=== PATIENT | female | born 1935 | race Caucasian/White ===

== ENCOUNTER 2020-02-09 13:35 | Observation (INO) | payer MEDICARE ==
[~2020-02-09] VITALS: Ht 167.6 cm; Wt 107.3 kg
[~2020-02-09 13:35] MED LIST: CALGLU500; DIAZ2 PO; FISH1000; FURO40; HYDMOR2 PO; INSN100I; INSUL100I; LISI10; LISI20; METF500; RXHYDMOR2 PO; RXLORA1 PO; SPIR25
[2020-02-09] MEDS ORDERED: Klor-Con 1010 MEQ PO (17:26)
[2020-02-09] MEDS ORDERED: AMOX-CLAV 500-1 EAC1 PO (17:27)
[2020-02-09] MEDS ORDERED: ESCI10 PO (17:29)
[2020-02-09] MEDS ORDERED: NEURONTIN300 MG PO (17:29)
[2020-02-09] MEDS ORDERED: Bumetanide2 MG PO (17:30)
[2020-02-09] MEDS ORDERED: Simvastatin10 MG PO (17:31)
[2020-02-09] MEDS ORDERED: LEVSOD75 PO (17:31)
[2020-02-09] MEDS ORDERED: ALLOPURINOL100 M1 PO (17:32)
[2020-02-09] MEDS ORDERED: METO5 PO (17:33)
[2020-02-09] MEDS ORDERED: METO50ER PO (17:33)
[2020-02-09 17:35] LABS: Hematocrit 40.9 % (33.0-51.0); Hemoglobin 13.2 g/dL (11.5-16.0); Mean Corpuscular HGB 31.7 pg (26.0-34.0); Mean Corpuscular HGB Conc 32.3 g/dL (31.5-36.5); Mean Corpuscular Volume 98 fL (80-100); Mean Platelet Volume 12.7 fL (9.1-12.4); Platelet Count 122 K/mm3 (150-400); RDW Coefficient Variation 15.1 % (11.7-14.2); RDW Standard Deviation 53.6 fL (35.1-46.3); Red Blood Cell Count 4.17 M/mm3 (3.80-5.20); White Blood Cell Count 18.64 K/mm3 (4.00-11.30)
[2020-02-09 17:52] LABS: Magnesium, Blood 3.3 mg/dL (1.6-2.4)
[2020-02-09 17:53] LABS: BAND PERCENT MAN 1 % (0-8); BASOPHILS PERCENT MAN 0 % (0-2); EOSINOPHILS ABSOLUTE MAN 0.55 K/mm3 (0.00-0.68); EOSINOPHILS PERCENT MAN 3 % (0-6); LYMPHOCYTES ABSOLUTE MAN 7.64 K/mm3 (0.84-5.20); LYMPHOCYTES PERCENT MAN 41 % (21-46); MONOCYTES ABSOLUTE MAN 0.55 K/mm3 (0.16-1.47); MONOCYTES PERCENT MAN 3 % (4-13); NEUTROPHILS ABSOLUTE MAN 9.87 K/mm3 (1.96-9.15); SEG NEUTROPHILS PERCENT MAN 52 % (41-73); TOTAL CELLS COUNTED 100
[2020-02-09] MEDS ORDERED: GABA300 PO (18:04)
[2020-02-09] MEDS ORDERED: CENTRUM SILVER1 EAC2 PO (18:08)
[2020-02-09] MEDS ORDERED: Glucosamine-Ch1 EACH PO (18:08)
[2020-02-09 18:31] LABS: Albumin, Blood 3.7 g/dL (3.4-5.0); Albumin/Globulin Ratio 0.9 (0.8-1.8); Bilirubin, Total 0.4 mg/dL (0.1-1.0); Bun/Creatinine Ratio 65.7 (12.0-20.0); Calcium, Blood 9.8 mg/dL (8.5-10.1); Creatinine, Blood 2.83 mg/dL (0.40-1.00); Globulin, Blood 4.1 g/dL (2.2-4.0); Phosphorus, Blood 6.1 mg/dL (2.5-4.9); Potassium, Blood 3.4 mmol/L (3.5-5.5); Total Protein, Blood 7.8 g/dL (6.4-8.2)
[2020-02-09] MEDS ORDERED: HUMALOG100 UNIT/1 SC (20:19)
[2020-02-09] MEDS ORDERED: LANTUS SC (20:20)
--- NOTE | 2020-02-09 22:47 | NUR ---
multiple calls from tele ekg monitor indicating HR has consistantly been in mid 40 's early part of evening. Just a few minutes ago, received another c all indicating patient had begun having brief periods in the mid to high 30's. Patient wakes easily and is alert and oriented times 4. Will place call to MD. Patient currently taking metoprolol 50mg q. day.
[2020-02-10 05:07] LABS: Hematocrit 38.7 % (33.0-51.0); Hemoglobin 12.5 g/dL (11.5-16.0); Mean Corpuscular HGB 31.2 pg (26.0-34.0); Mean Corpuscular HGB Conc 32.3 g/dL (31.5-36.5); Mean Corpuscular Volume 97 fL (80-100); Mean Platelet Volume 12.3 fL (9.1-12.4); Platelet Count 121 K/mm3 (150-400); RDW Standard Deviation 53.6 fL (35.1-46.3); Red Blood Cell Count 4.01 M/mm3 (3.80-5.20); White Blood Cell Count 16.74 K/mm3 (4.00-11.30)
[2020-02-10 05:49] LABS: C-REACTIVE PROTEIN, EXT RANGE 1.47 mg/dL (0.000-0.300); Magnesium, Blood 3.3 mg/dL (1.6-2.4); Thyroid Stimulating Hormone 2.47 uIU/mL (0.360-4.800)
[2020-02-10 05:55] LABS: BASOPHILS PERCENT MAN 0 % (0-2); EOSINOPHILS ABSOLUTE MAN 0.33 K/mm3 (0.00-0.68); EOSINOPHILS PERCENT MAN 2 % (0-6); LYMPHOCYTES ABSOLUTE MAN 8.53 K/mm3 (0.84-5.20); LYMPHOCYTES PERCENT MAN 51 % (21-46); MONOCYTES ABSOLUTE MAN 1.17 K/mm3 (0.16-1.47); MONOCYTES PERCENT MAN 7 % (4-13); NEUTROPHILS ABSOLUTE MAN 6.69 K/mm3 (1.96-9.15); SEG NEUTROPHILS PERCENT MAN 40 % (41-73); TOTAL CELLS COUNTED 100
[2020-02-10 05:56] LABS: Albumin, Blood 3.3 g/dL (3.4-5.0); Albumin/Globulin Ratio 0.9 (0.8-1.8); Bilirubin, Total 0.5 mg/dL (0.1-1.0); Bun/Creatinine Ratio 62.3 (12.0-20.0); Calcium, Blood 9.5 mg/dL (8.5-10.1); Creatinine, Blood 2.84 mg/dL (0.40-1.00); Globulin, Blood 3.7 g/dL (2.2-4.0); Potassium, Blood 3.2 mmol/L (3.5-5.5)
--- NOTE | 2020-02-10 07:13 | NUR ---
PER DR CARABALLO, PROCEDURE WILL BE ON HOLD DUE TO THE INCREASE IN GFR. DR CARABALLO WILL CALL DR WALTON AND UPDATE ABOUT PROCEDURE CANCELLATION. PT BACK TO MEDICAL FLOOR ROOM BY RN.
--- NOTE | 2020-02-10 07:57 | NUR ---
SOIL SCIENCE TEACHER SUMMARY Slept well. Minimal c/o pain overnight after repositioning on side and giving patient 2 tylenol for right and left flank discomfort which she has had complaints of for the last several days. Awaiting information from Dr. Carcamo as GFR has increased to 17 this morning.
--- NOTE | 2020-02-10 11:34 | NUR ---
FLEXERIL & INSULIN DISCUSSED WITH DR. LUCAS RE PT REQUESTING FLEXERIL FOR MUSCLE SPASMS. ALSO DISCUSSED NO INSULIN ORDERED FOR BLOOD SUGAR COVERAGE. DR. LUCAS WILL BE PUTTING IN ORDERS FOR INSULIN. RECEIVED VERBAL ORDER FOR FLEXERIL. EMAR UPDATED.
--- NOTE | 2020-02-10 16:37 | NUR ---
Shift Summary A/Ox3, pleasant and cooperative with care. Calls for needs appropriately, dtr at bedside for most of day. Up to chair x 1 assist. Medicated for back spasms x 2 per EMAR with good results. Denies nausea, vomiting, diarrhea. Appetite is good. Wound care was completed last night per report received, dressing remains c/d/i. Tele: SB 50's. Continuous biox currently on. Patient had an uneventful day with no acute concerns. Will continue to monitor.
[2020-02-11 05:09] LABS: BASOPHILS ABSOLUTE AUTO 0.06 K/mm3 (0.00-0.23); BASOPHILS PERCENT AUTO 0 % (0-2); EOSINOPHILS ABSOLUTE AUTO 0.35 K/mm3 (0.00-0.68); EOSINOPHILS PERCENT AUTO 3 % (0-6); Hematocrit 39.4 % (33.0-51.0); Hemoglobin 12.7 g/dL (11.5-16.0); Mean Corpuscular HGB 31.2 pg (26.0-34.0); Mean Corpuscular HGB Conc 32.2 g/dL (31.5-36.5); Mean Corpuscular Volume 97 fL (80-100); Mean Platelet Volume 12.9 fL (9.1-12.4); Platelet Count 127 K/mm3 (150-400); RDW Standard Deviation 53.2 fL (35.1-46.3); Red Blood Cell Count 4.07 M/mm3 (3.80-5.20); White Blood Cell Count 13.82 K/mm3 (4.00-11.30)
[2020-02-11 05:19] LABS: IMMATURE GRAN ABSOLUTE AUTO 0.06 K/mm3 (0.00-0.10); IMMATURE GRAN PERCENT AUTO 0 % (0-1); LYMPHOCYTES ABSOLUTE AUTO 7.77 K/mm3 (0.84-5.20); LYMPHOCYTES PERCENT AUTO 56 % (21-46); MONOCYTES PERCENT AUTO 5 % (4-13); NEUTROPHILS ABSOLUTE AUTO 4.88 K/mm3 (1.96-9.15); NEUTROPHILS PERCENT AUTO 35 % (41-73)
[2020-02-11 05:44] LABS: Albumin, Blood 3.4 g/dL (3.4-5.0); Anion Gap 7 mmol/L (6-16); CO2, Blood 30 mmol/L (21-32); Calcium, Blood 9.6 mg/dL (8.5-10.1); Chloride, Blood 103 mmol/L (98-108); Creatinine, Blood 2.77 mg/dL (0.40-1.00); Glomerular Filtration Rate 17 (60-); Glucose, Blood 243 mg/dL (70-99); Magnesium, Blood 3.3 mg/dL (1.6-2.4); Phosphorus, Blood 4.9 mg/dL (2.5-4.9); Potassium, Blood 3.7 mmol/L (3.5-5.5); Sodium, Blood 140 mmol/L (136-145)
[2020-02-11 06:04] LABS: Blood Urea Nitrogen 164 mg/dL (8-24); Bun/Creatinine Ratio 59.2 (12.0-20.0)
--- NOTE | 2020-02-11 06:32 | NUR ---
ADDENDUM TO SHIFT SUMMARY. Gordy IS CONCERNED ABOUT NOT RECEIVING PO ANTIBIOTIC (SHE WAS TAKING AMOXICILLAN PRIOR TO THIS HOSPITALZATION. (PRESCRIBED BY HER FOOT DOCTOR IN [place])
--- NOTE | 2020-02-11 11:12 | NUR ---
OXIMETRY PER DR. LUCAS, OXIMETRY TO BE D/C. ORDER UPDATED.
--- NOTE | 2020-02-11 17:42 | NUR ---
Shift Summary Reported an episode of slight dizziness when ambulating to the bathroom. Continues to be 1P c FWW and gait. Wound on L medial foot cleansed and redressed, scant serous drainage noted. Amoxicillin continued per patient request as she states she is taking this for her wound which was prescribed by her signs cleaner in [place]. Continues to c/o back spasms, medicated with a combination of Flexeril, Tylenol, and heat therapy with good relief. Calls appropriately for needs. Will continue to monitor.
[2020-02-12 04:54] LABS: Hematocrit 39.8 % (33.0-51.0); Mean Corpuscular HGB 31.6 pg (26.0-34.0); Mean Corpuscular HGB Conc 32.7 g/dL (31.5-36.5); Mean Corpuscular Volume 97 fL (80-100); Mean Platelet Volume 12.7 fL (9.1-12.4); Platelet Count 121 K/mm3 (150-400); RDW Standard Deviation 53.1 fL (35.1-46.3); Red Blood Cell Count 4.12 M/mm3 (3.80-5.20); White Blood Cell Count 17.02 K/mm3 (4.00-11.30)
[2020-02-12 05:26] LABS: Albumin, Blood 3.4 g/dL (3.4-5.0); Anion Gap 8 mmol/L (6-16); CO2, Blood 28 mmol/L (21-32); Calcium, Blood 9.5 mg/dL (8.5-10.1); Chloride, Blood 102 mmol/L (98-108); Creatinine, Blood 2.95 mg/dL (0.40-1.00); Glomerular Filtration Rate 16 (60-); Glucose, Blood 260 mg/dL (70-99); Magnesium, Blood 3.3 mg/dL (1.6-2.4); Phosphorus, Blood 4.5 mg/dL (2.5-4.9); Potassium, Blood 3.8 mmol/L (3.5-5.5); Sodium, Blood 138 mmol/L (136-145)
[2020-02-12 05:41] LABS: Blood Urea Nitrogen 160 mg/dL (8-24); Bun/Creatinine Ratio 54.2 (12.0-20.0)
--- NOTE | 2020-02-12 06:40 | NUR ---
SHIFT SUMMARY PATIENT ALERT AND ORIENTED OVERNIGHT. MEDICATED PER EMAR FOR MUSCLE SPASMS. WAS ABLE TO SLEEP WELL OVERNIGHT WITH MINIMAL NEEDS. IV PATENT AND FLUSHED. BED IN LOWEST POSITION WITH WHEELS LOCKED. CALL LIGHT WITHIN REACH. REPORT GIVEN TO ONCOMING RN.
--- NOTE | 2020-02-12 16:40 | NUR ---
Transfer of Care Report given to LATISHA Perdomo. Dressing on L medial foot changed today, scant serosanguineous drainage noted. Patient c/o pain in L lateral foot which has made it difficult for her to fall asleep, however, patient can not feel touch in this area. States spasms have been well managed with heating pad. No other acute changes this shift.
--- NOTE | 2020-02-12 16:47 | NUR ---
ASSUMED CARE OF PT AT 1630. RECEIVED REPORT FROM GOSIA GOOD. PT DENIES ANY NEEDS AT THIS TIME. WILL CONTINUE TO MONITOR PT.
[2020-02-13 04:59] LABS: Hematocrit 39.5 % (33.0-51.0); Hemoglobin 12.8 g/dL (11.5-16.0); Mean Corpuscular HGB 31.2 pg (26.0-34.0); Mean Corpuscular HGB Conc 32.4 g/dL (31.5-36.5); Mean Corpuscular Volume 96 fL (80-100); Mean Platelet Volume 13.1 fL (9.1-12.4); Platelet Count 107 K/mm3 (150-400); RDW Coefficient Variation 14.9 % (11.7-14.2); RDW Standard Deviation 52.1 fL (35.1-46.3); White Blood Cell Count 14.48 K/mm3 (4.00-11.30)
[2020-02-13 05:27] LABS: Alanine Aminotransfer (ALT/SGP 22 U/L (12-78); Albumin, Blood 3.5 g/dL (3.4-5.0); Alk Phos 81 U/L (50-136); Anion Gap 8 mmol/L (6-16); Aspartate Aminotrans (AST/SGOT 20 U/L (12-37); Bilirubin, Direct 0.1 mg/dL (0.0-0.3); Bilirubin, Indirect 0.3 mg/dL (0.1-0.7); Bilirubin, Total 0.4 mg/dL (0.1-1.0); CO2, Blood 27 mmol/L (21-32); Calcium, Blood 9.7 mg/dL (8.5-10.1); Chloride, Blood 102 mmol/L (98-108); Creatinine, Blood 3.19 mg/dL (0.40-1.00); Globulin, Blood 3.5 g/dL (2.2-4.0); Glomerular Filtration Rate 15 (60-); Glucose, Blood 276 mg/dL (70-99); Magnesium, Blood 3.2 mg/dL (1.6-2.4); Phosphorus, Blood 4.4 mg/dL (2.5-4.9); Sodium, Blood 137 mmol/L (136-145)
[2020-02-13 05:46] LABS: Blood Urea Nitrogen 158 mg/dL (8-24); Bun/Creatinine Ratio 49.5 (12.0-20.0)
[2020-02-13 06:21] LABS: BASOPHILS ABSOLUTE MAN 0.14 K/mm3 (0.00-0.23); BASOPHILS PERCENT MAN 1 % (0-2); EOSINOPHILS ABSOLUTE MAN 0.43 K/mm3 (0.00-0.68); EOSINOPHILS PERCENT MAN 3 % (0-6); LYMPHOCYTES ABSOLUTE MAN 8.97 K/mm3 (0.84-5.20); LYMPHOCYTES PERCENT MAN 62 % (21-46); MONOCYTES ABSOLUTE MAN 1.01 K/mm3 (0.16-1.47); MONOCYTES PERCENT MAN 7 % (4-13); SEG NEUTROPHILS PERCENT MAN 27 % (41-73); TOTAL CELLS COUNTED 100
--- NOTE | 2020-02-13 07:35 | NUR ---
SHIFT SUMMARY PATIENT ALERT AND ORIENTED. MEDICATED PER EMAR FOR BACK PAIN AND PATIENT WAS ABLE TO SLEEP WELL ALL NIGHT. IV PATENT AND FLUSHED. BED IN LOWEST POSITION WITH WHEELS LOCKED. CALL LIGHT WTIHIN REACH. REPORT GIVEN TO ONCOMING RN.
--- NOTE | 2020-02-13 15:31 | NUR ---
PT IS A&O, PT HAS 22G IV PLACED IN R HAND THIS SHIFT, PT IS ON RA. PT IS INDEPENDENT IN ROOM TO COMODE. PT HAS DRESSING ON LEFT ANTERIOR FOOT. PT HAS DENIED ANY PAIN THIS SHIFT. PT TOLORATED FOOD WELL THIS SHIFT. PT WILL HAVE PERMA CATH PLACED TOMORROW WILL COUNTINUE TO MONITOR AND REPORT NOC RN, CALL LIGHT WITH IN REACH.
[2020-02-14 05:31] LABS: Hematocrit 38.8 % (33.0-51.0); Hemoglobin 12.6 g/dL (11.5-16.0); Mean Corpuscular HGB 31.3 pg (26.0-34.0); Mean Corpuscular HGB Conc 32.5 g/dL (31.5-36.5); Mean Corpuscular Volume 97 fL (80-100); Platelet Count 105 K/mm3 (150-400); RDW Coefficient Variation 14.9 % (11.7-14.2); RDW Standard Deviation 53.3 fL (35.1-46.3); Red Blood Cell Count 4.02 M/mm3 (3.80-5.20); White Blood Cell Count 15.99 K/mm3 (4.00-11.30)
[2020-02-14 05:48] LABS: Mean Platelet Volume 13.3 fL (9.1-12.4)
[2020-02-14 06:21] LABS: Albumin, Blood 3.4 g/dL (3.4-5.0); Albumin/Globulin Ratio 0.9 (0.8-1.8); Bilirubin, Total 0.4 mg/dL (0.1-1.0); Bun/Creatinine Ratio 52.3 (12.0-20.0); Calcium, Blood 9.6 mg/dL (8.5-10.1); Creatinine, Blood 2.81 mg/dL (0.40-1.00); Globulin, Blood 3.8 g/dL (2.2-4.0); Magnesium, Blood 3.2 mg/dL (1.6-2.4); Phosphorus, Blood 3.9 mg/dL (2.5-4.9); Potassium, Blood 4.1 mmol/L (3.5-5.5); Total Protein, Blood 7.2 g/dL (6.4-8.2)
--- NOTE | 2020-02-14 06:36 | NUR ---
SHIFT SUMMARY PATIENT ALERT AND ORIENTED. HAD NO COMPLAINTS OF PAIN OVERNIGHT. PATIENT SLEPT WELL AND HAD MINIMAL NEEDS. IV PATENT AND FLUSHED. BED IN LOWEST POSITION WITH WHEELS LOCKED. CALL LIGHT WITHIN REACH. REPORT GIVEN TO ONCOMING RN.
[2020-02-14 07:15] LABS: BASOPHILS PERCENT MAN 0 % (0-2); EOSINOPHILS PERCENT MAN 0 % (0-6); LYMPHOCYTES ABSOLUTE MAN 8.31 K/mm3 (0.84-5.20); LYMPHOCYTES PERCENT MAN 52 % (21-46); MONOCYTES ABSOLUTE MAN 1.27 K/mm3 (0.16-1.47); MONOCYTES PERCENT MAN 8 % (4-13); NEUTROPHILS ABSOLUTE MAN 6.39 K/mm3 (1.96-9.15); SEG NEUTROPHILS PERCENT MAN 40 % (41-73); TOTAL CELLS COUNTED 100
[2020-02-14] MEDS ORDERED: BASAGLAR K100 UNIT/1 SC (11:39)
[2020-02-14] MEDS ORDERED: LIDOCARE1 EACH TOP (11:42)
--- NOTE | 2020-02-14 14:23 | NUR ---
DISCHARGE PT DISCHARGED TO HOME. THIS RN EXPLAINED DISCHARGE INSTRUCTIONS AND MEDICATIONS TO PT AND SHE REPORTS SHE UNDERSTANDS. IV REMOVED WITHOUT DIFFICULTY. WOUND TO LEFT MEDIAL FOOT CLEANED AND NEW DRESSING PLACED. PICTURE TAKEN. PT TRANSFERRED TO PRIVATE VEHICLE VIA WHEELCHAIR. BELONGINGS WITH PT AND PT'S DAUGHTER.
== END 2020-02-14 13:29 | disposition home or self-care (01) ==
LOC: ER 13:35 → MEDS 13:36 → ER 17:45 → MEDS 17:45
PROVIDERS: Emergency Medicine; Internal Medicine Nephrology; ADMIT Internal Medicine
DX: I12.0 Hypertensive chronic kidney disease with stage 5 chronic kidney disease or end stage renal disease (principal); E11.22 Type 2 diabetes mellitus with diabetic chronic kidney disease; N18.6 End stage renal disease; N17.9 Acute kidney failure, unspecified; E87.70 Fluid overload, unspecified; E03.9 Hypothyroidism, unspecified; E87.6 Hypokalemia; E87.1 Hypo-osmolality and hyponatremia; E83.41 Hypermagnesemia; M10.9 Gout, unspecified; M54.9 Dorsalgia, unspecified; N25.81 Secondary hyperparathyroidism of renal origin; Z79.4 Long term (current) use of insulin; Z88.5 Allergy status to narcotic agent; Z88.0 Allergy status to penicillin
CPT/HCPCS: 36415; 71046; 76770; 80053; 80069; 82248; 82947; 83735; 83880; 84100; 84443; 85025; 85027; 85651; 86140; 96372; 97110; 97110-CQ; 97116; 97116-CQ; 97162; 97530; 99284; A9270; A9270-GY; G0378; J1644; J2250; J3010; J3480; J7040

== ENCOUNTER 2020-03-01 10:45 | Day surgery (SDC) | payer MEDICARE ==
[~2020-03-01] VITALS: Ht 170.2 cm; Wt 109.8 kg
[~2020-03-01 10:45] MED LIST changes: +ALLOPURINOL100 M1 PO; +AMOX-CLAV 500-1 EAC1 PO; +BASAGLAR K100 UNIT/1 SC; +Bumetanide2 MG PO; +CENTRUM SILVER1 EAC2 PO; +ESCI10 PO; +GABA300 PO; +Glucosamine-Ch1 EACH PO; +HUMALOG100 UNIT/1 SC; +Klor-Con 1010 MEQ PO; +LANTUS SC; +LEVSOD75 PO; +LIDOCARE1 EACH TOP; +METO5 PO; +METO50ER PO; +NEURONTIN300 MG PO; +Simvastatin10 MG PO
[2020-03-01] MEDS ORDERED: Aspir 8181 MG PO (11:15)
[2020-03-01] MEDS ORDERED: FISH OIL-VIT D1 EACH PO (11:16)
--- NOTE | 2020-03-01 13:08 | NUR ---
1300 PATIENT RETURNED FROM THE CATHLAB WITH PERMA CATH IN PLACE, CLAMPED AND DRESSING CDI. PATIENT PLACED ON THE MONITOR, CALL LIGHT IN REACH. HOB UP AND DRINKING COFFEE. DAUGHTER AT THE BEDSIDE. NO PAIN NOTED FROM THE PATIENT.
--- NOTE | 2020-03-01 14:02 | NUR ---
1330 REVIEWED ALL DISCHARGE INSTRUCTIONS WITH PATIENT AND DAUGHTER. ALL QUESTIONS ANSWERED. PATIENT SITTING UP IN THE BED, MONITOR IN PLACE AND CALL LIGHT IN REACH. EATING LUNCH WITH DAUGHTER AT THE BEDSIDE. DRESSING TO THE RIGHT SHOULDER CDI. NO PAIN NOTED FROM THE PATIENT. PATIENT ASSISTED WITH DRESSING BY DAUGHTER AND THEN ASSISTED TO THE WHEELCHAIR. 1400 PIV TO THE RIGHT AC REMOVED, CATHETER TIP INTACT AND PRESSURE DRESSING APPLIED. DISCHARGE INSTRUCTIONS AND ALL BELONGINGS RETAINED BY THE PATIENT.
== END 2020-03-01 13:45 | disposition home or self-care (01) ==
LOC: MHTC 10:45
DX: I12.0 Hypertensive chronic kidney disease with stage 5 chronic kidney disease or end stage renal disease (principal); E11.22 Type 2 diabetes mellitus with diabetic chronic kidney disease; N18.6 End stage renal disease; E78.00 Pure hypercholesterolemia, unspecified; Z88.5 Allergy status to narcotic agent; Z88.0 Allergy status to penicillin; Z79.899 Other long term (current) drug therapy; Z79.4 Long term (current) use of insulin; Z79.82 Long term (current) use of aspirin
CPT/HCPCS: 36558; 76937; 99152; 99153; C1750; C1769; C1894; J1644; J2250; J3010; J7030; J7040

== ENCOUNTER 2020-03-30 10:04 | Day surgery (SDC) | payer MEDICARE ==
[~2020-03-30] VITALS: Ht 167.6 cm; Wt 110.0 kg
[~2020-03-30 10:04] MED LIST changes: +Aspir 8181 MG PO; +BIOTIN1 MG; +BUME2; +CYCL10 PO; +FISH OIL-VIT D1 EACH PO
--- NOTE | 2020-03-30 15:00 | NUR ---
PT TO RECOVERY ROOM POST PROCEDURE. PT DOSING, BUT ROUSES TO NAME; ORIENTED AND ANSWERS QUESTIONS APPROPRIATELY. PT DENIES PAIN POST PROCEDURE. MONITOR SB/SR 50-60'S, B/P 138/63, AFEBRILE, SPO2 97% 2L NC . ABD PD DRAIN SITE NO SWELLING/HEMATOMA, TELFA, GAUZE AND TEGADERM DRSG INTACT. R CHEST OLD PERMCATH SITE CLOTH DOT DRSG INTACT. PT'S DAUGHTER AT BEDSIDE, ATTENTIVE.
--- NOTE | 2020-03-30 15:30 | NUR ---
PT UPDATED VIA BINDERY LIBRARY TECHNICAL ASSISTANT TELEPHONE ON WAIT TIME. AMBULATES TO RESTROOM WITH STEADY GAIT. PROVIDED WITH WARM BLANKET
--- NOTE | 2020-03-30 16:45 | NUR ---
PT AMB TO BATHROOM WITH WALKER, GAIT STEADY; SITE UNCHANGED WITH ACTIVITY. PT REPORTS SOB WITH ACITVITY-WNL FOR PT, DESATURATED TO 87, RETURNED TO MID 90'S WITH REST.
--- NOTE | 2020-03-30 17:00 | NUR ---
PT GOT DRESSED WITH MIN ASSISTANCE, SITE UNCHANGED; IV REMOVED-CANNULA INTACT.
--- NOTE | 2020-03-30 17:13 | NUR ---
PT AND DAUGHTER RECEIVED DISCHARGE INSTRUCTIONS, MED LIST AND AFTER CARE INSTRUCTIONS; VERBALIZED GOOD UNDERSTANDING. PT LEFT FACILITY VIA W/C, CONDITION STABLE.
== END 2020-03-30 17:13 | disposition home or self-care (01) ==
LOC: MHTC 10:04
DX: Z45.2 Encounter for adjustment and management of vascular access device (principal); I12.0 Hypertensive chronic kidney disease with stage 5 chronic kidney disease or end stage renal disease; E11.22 Type 2 diabetes mellitus with diabetic chronic kidney disease; N18.6 End stage renal disease; E78.00 Pure hypercholesterolemia, unspecified; Z88.5 Allergy status to narcotic agent; Z88.0 Allergy status to penicillin; Z79.899 Other long term (current) drug therapy; Z79.82 Long term (current) use of aspirin; Z79.4 Long term (current) use of insulin; Z99.2 Dependence on renal dialysis
CPT/HCPCS: 49418; 76937; 82947; 99152; 99153; C1750; C1769; C1887; C1894; J1644; J2250; J3010; J7030; J7040

== ENCOUNTER 2020-07-20 16:19 | Emergency (ER) | payer MEDICARE ==
[~2020-07-20] VITALS: Ht 167.6 cm; Wt 108.0 kg
[~2020-07-20 16:19] MED LIST changes: -BUME2; +BUME2 PO
[2020-07-20 17:54] LABS: BASOPHILS ABSOLUTE AUTO 0.03 K/mm3 (0.00-0.23); BASOPHILS PERCENT AUTO 0 % (0-2); EOSINOPHILS ABSOLUTE AUTO 0.01 K/mm3 (0.00-0.68); EOSINOPHILS PERCENT AUTO 0 % (0-6); Hematocrit 39.5 % (33.0-51.0); Hemoglobin 12.6 g/dL (11.5-16.0); IMMATURE GRAN PERCENT AUTO 1 % (0-1); LYMPHOCYTES ABSOLUTE AUTO 4.05 K/mm3 (0.84-5.20); LYMPHOCYTES PERCENT AUTO 33 % (21-46); MONOCYTES ABSOLUTE AUTO 0.25 K/mm3 (0.16-1.47); MONOCYTES PERCENT AUTO 2 % (4-13); Mean Corpuscular HGB 30.4 pg (26.0-34.0); Mean Corpuscular HGB Conc 31.9 g/dL (31.5-36.5); Mean Corpuscular Volume 95 fL (80-100); NEUTROPHILS ABSOLUTE AUTO 7.69 K/mm3 (1.96-9.15); NEUTROPHILS PERCENT AUTO 63 % (41-73); Platelet Count 144 K/mm3 (150-400); RDW Coefficient Variation 16.6 % (11.7-14.2); RDW Standard Deviation 58.4 fL (35.1-46.3); Red Blood Cell Count 4.14 M/mm3 (3.80-5.20); White Blood Cell Count 12.13 K/mm3 (4.00-11.30)
[2020-07-20 18:39] LABS: Albumin, Blood 3.7 g/dL (3.4-5.0); Bilirubin, Total 0.4 mg/dL (0.1-1.0); Bun/Creatinine Ratio 45.2 (12.0-20.0); Calcium, Blood 9.7 mg/dL (8.5-10.1); Creatinine, Blood 1.97 mg/dL (0.40-1.00); Globulin, Blood 3.6 g/dL (2.2-4.0); Potassium, Blood 4.8 mmol/L (3.5-5.5); Total Protein, Blood 7.3 g/dL (6.4-8.2)
[2020-07-20] MEDS ORDERED: SENNA LAXATIVE8.6 MG PO (21:48)
[2020-07-20] MEDS ORDERED: Zithromax250 MG PO (21:48)
== END 2020-07-20 22:00 | disposition home or self-care (01) ==
LOC: ER 16:19
PROVIDERS: Physician Assistant
DX: J18.9 Pneumonia, unspecified organism (principal); K59.00 Constipation, unspecified; M54.5 Low back pain; I12.9 Hypertensive chronic kidney disease with stage 1 through stage 4 chronic kidney disease, or unspecified chronic kidney disease; E11.22 Type 2 diabetes mellitus with diabetic chronic kidney disease; N18.9 Chronic kidney disease, unspecified; E03.9 Hypothyroidism, unspecified; Z88.5 Allergy status to narcotic agent; Z88.0 Allergy status to penicillin; Z79.4 Long term (current) use of insulin; Z79.899 Other long term (current) drug therapy; Z79.82 Long term (current) use of aspirin
CPT/HCPCS: 36415; 80053; 85025; 99284-25; A9270

== ENCOUNTER → 2020-07-21 | Outpatient (CLI) | payer MEDICARE ==
[~2020-07-21] MED LIST changes: +INSULANI; +LEVFLO500; +LEVOFLOXACIN500 MG PO; +SENNA LAXATIVE8.6 MG PO; +SULTRIDS PO; +VISBIOME 112.51 EACH PO; +Zithromax250 MG PO
[2020-07-21 13:20] LABS: Automated BF WBC Count 0.028 K/mm3 (0-999); Body Fluid WBC Count 28 /mm3 (0-999)
[2020-07-21 13:41] LABS: RBC Count, Body Fluid 345 /mm3 (0-0)
[2020-07-21 13:51] LABS: Appearance, Body Fluid Clear (Clear); Color, Body Fluid No color (None-Yellow)
[2020-07-21 14:05] LABS: Total Cell Count, Body Fluid 100
== END | disposition home or self-care (01) ==
LOC: LAB 12:30 → LAB SHORT 12:30
PROVIDERS: Internal Medicine Nephrology
DX: R11.2 Nausea with vomiting, unspecified (principal); R10.9 Unspecified abdominal pain
CPT/HCPCS: 87070; 87075; 87205; 89051

== ENCOUNTER 2020-09-07 11:28 | Inpatient (IN) | payer MEDICARE ==
[~2020-09-07] VITALS: Ht 167.6 cm; Wt 115.0 kg
[~2020-09-07 11:28] MED LIST changes: -INSULANI; -LEVFLO500; -LEVOFLOXACIN500 MG PO; -SULTRIDS PO; -VISBIOME 112.51 EACH PO
[2020-09-07 12:10] LABS: Hematocrit 34.6 % (33.0-51.0); Hemoglobin 11.3 g/dL (11.5-16.0); Mean Corpuscular HGB 31.9 pg (26.0-34.0); Mean Corpuscular HGB Conc 32.7 g/dL (31.5-36.5); Mean Corpuscular Volume 98 fL (80-100); Mean Platelet Volume 12.2 fL (9.1-12.4); Platelet Count 131 K/mm3 (150-400); RDW Coefficient Variation 15.2 % (11.7-14.2); RDW Standard Deviation 55.6 fL (35.1-46.3); Red Blood Cell Count 3.54 M/mm3 (3.80-5.20)
[2020-09-07 12:38] LABS: Albumin, Blood 2.4 g/dL (3.4-5.0); Albumin/Globulin Ratio 0.7 (0.8-1.8); Bilirubin, Total 0.6 mg/dL (0.1-1.0); Bun/Creatinine Ratio 25.7 (12.0-20.0); Calcium, Blood 8.5 mg/dL (8.5-10.1); Creatinine, Blood 2.22 mg/dL (0.40-1.00); Globulin, Blood 3.3 g/dL (2.2-4.0); Potassium, Blood 3.6 mmol/L (3.5-5.5); Total Protein, Blood 5.7 g/dL (6.4-8.2)
[2020-09-07 12:59] LABS: BASOPHILS ABSOLUTE MAN 0.11 K/mm3 (0.00-0.23); BASOPHILS PERCENT MAN 1 % (0-2); EOSINOPHILS ABSOLUTE MAN 0.11 K/mm3 (0.00-0.68); EOSINOPHILS PERCENT MAN 1 % (0-6); LYMPHOCYTES % ATYPICAL MANUAL 2 % (0-0); LYMPHOCYTES ABSOLUTE MAN 3.68 K/mm3 (0.84-5.20); LYMPHOCYTES PERCENT MAN 30 % (21-46); MONOCYTES ABSOLUTE MAN 0.57 K/mm3 (0.16-1.47); MONOCYTES PERCENT MAN 5 % (4-13); NEUTROPHILS ABSOLUTE MAN 7.01 K/mm3 (1.96-9.15); SEG NEUTROPHILS PERCENT MAN 61 % (41-73); TOTAL CELLS COUNTED 100
--- NOTE | 2020-09-07 17:00 | NUR ---
ASSUMED CARE: PT TRANSFERRED FROM ED TO ROOM 229. ABD PAD AND PACKING TO LEFT LOWER QUADRANT AFTER I AND D. DENIES NEEDS OR CONCERNS.
--- NOTE | 2020-09-07 18:28 | NUR ---
DIALYSIS NURSE AT BEDSIDE FOR PD AT THIS TIME.
--- NOTE | 2020-09-07 19:23 | NUR ---
PERITONEAL EFFLUENT SAMPLE ORDERED BY DR CARABALLO FOR PATIENT ADMITTED TO SURGICAL FLOOR VIA ER WITH C/O OPEN WOUND ON ABDOMEN NEAR PD CATHETER EXIT SITE. PT FOUND TO BE " DRY " SO TO FACILITATE OBTAINING ORDERED SAMPLE A CAPD MANUAL EXCHANGE WAS DONE AND ALLOWED TO DWELL X 45 MIN. EFFLUENT SAMPLE WAS THEN OBTAINED AND CARRIED TO LAB FOR CULTURE, GRAM STAIN, CELL COUNT AND DIFFERENTIAL.
[2020-09-07 19:53] LABS: Body Fluid WBC Count 6 /mm3 (0-999); RBC Count, Body Fluid 192 /mm3 (0-0)
[2020-09-07 20:27] LABS: Appearance, Body Fluid Clear (Clear); Color, Body Fluid No color (None-Yellow); Total Cell Count, Body Fluid 100
--- NOTE | 2020-09-07 20:54 | NUR ---
OVERNIGHT CCPD SET UP PER DR CARABALLO'S ORDERS. WHEN PRIME COMPETE, PT AESEPTICALY CONNECTED AND THERAPY STARTED. EXIT SITE CARE DONE. SITE WITH MATTHEW REDNESS. CLEANSED WITH EXCEPT AND NEW STERIE DRESSING APPLIED WITH 2 STRAIN RELIEFS. PT WITH C/O DISCOMFORT WITH INITIA DRAIN AND START of fill #1 SURG FOOR STAFF AWARE OF OVERNIGHT THERAPY IN PROGRESS.
--- NOTE | 2020-09-08 03:35 | NUR ---
CANCER GENETICS ASSISTANT SUMMARY A/OX4, 1 ASSIST TO BATHROOM. LOWER ABD CONTINUES TO APPEAR RED, SWOLLEN AND TENDER. PT RECEIVED IV ABX T/O NIGHT WELL DIALYSIS. USE OF CPAP WITH SATS GREATER THAN 92. VSS, NO ACUTE CHANGES AT THIS TIME. BED IN LOWEST POSITION WITH CALL LIGHT IN REACH. WILL CONTINUE TO MONITOR AND REPORT TO ONCOMING RN.
[2020-09-08 04:25] LABS: Hematocrit 34.9 % (33.0-51.0); Hemoglobin 11.3 g/dL (11.5-16.0)
[2020-09-08 04:45] LABS: Albumin, Blood 2.2 g/dL (3.4-5.0); Anion Gap 6 mmol/L (6-16); Blood Urea Nitrogen 55 mg/dL (8-24); Bun/Creatinine Ratio 25.7 (12.0-20.0); CO2, Blood 31 mmol/L (21-32); Calcium, Blood 8.5 mg/dL (8.5-10.1); Chloride, Blood 104 mmol/L (98-108); Creatinine, Blood 2.14 mg/dL (0.40-1.00); Glomerular Filtration Rate 23 (60-); Glucose, Blood 231 mg/dL (70-99); Magnesium, Blood 1.9 mg/dL (1.6-2.4); Phosphorus, Blood 3.5 mg/dL (2.5-4.9); Potassium, Blood 3.2 mmol/L (3.5-5.5); Sodium, Blood 141 mmol/L (136-145)
--- NOTE | 2020-09-08 07:01 | NUR ---
ASSUMED CARE: PT RESTING QUIETLY AT THIS TIME. PD DIALYSIS RUNNING. NO ACUTE NEEDS OR CONCERNS AT THIS TIME.
--- NOTE | 2020-09-08 07:28 | NUR ---
PT AWAKE/ ALERT/ CONVERSANT UPON ENTRY TO ROOM THIS AM. OVERNIGHT CCPD COMPLETE. PT AESEPTICALLY DISCONNECTED AND CAPPED. CYCLER STRIPPED AND CLEANED. DR CARABALLO CONSULTED FOR ORDERS / PLAN OF CARE.
--- NOTE | 2020-09-08 08:04 | NUR ---
DR WEISS CAME TO SEE PT AND CHANGED WOUND DRESSING TO ABDOMEN WITH 2 INCH IODOFORM PACKING, GAUZE AND TAPE. STATES THAT PT NEEDS AT LEAST ONE MORE DAY OF ANTIBIOTICS. PT AGREEABLE TO THIS PLAN.
[2020-09-08 08:27] LABS: Vancomycin, Random 26.1 ug/mL
--- NOTE | 2020-09-08 10:00 | NUR ---
PT EXPRESSED CONCERN ABOUT BUMEX THAT SHE NORMALLY TAKES AT HOME THAT IS NOT ORDERED HERE. CALL TO DR CARABALLO. SEE NEW ORDERS. PT AGREEABLE TO CURRENT ORDERS.
--- NOTE | 2020-09-08 18:30 | NUR ---
SHIFT SUMMARY: PT SITTING UPRIGHT IN CHAIR AND ACCIDENTALLY PULLED OUT IV. THIS RN ATTEMPTED RESTART TWICE. INFORMED INCOMING FREIGHT CLERK WHO AGREED TO ATTEMPT NEW IV. IV ABX FOR MN ORDERED. HIGHWAY SAFETY ENGINEER JUST LEFT BEDSIDE AFTER CONNECTING PT TO PD. PLAN IS FOR AT LEAST 48 HOURS OF IV ANTIBIOTICS. NO FURTHER NEEDS OR CONCERNS AT THIS TIME.
--- NOTE | 2020-09-08 18:39 | NUR ---
PT SITTING UP IN CHAIR THIS AFTERNOON, NO VERB DISCOMFORT. CYCLER STRUN, PRIMED AND PROGRAMMED PER RX. WHEN PRIME COMPLETE, PT AESEPTICALLY CONNECTED AND OVERNIGHT THERAPY STARTED. THEREAPY MONITORED THROUGHT INITIAL DRAIN AND START OF FILL #1. EXIT SITE CARE DONE. SOME BLOODY DRAINAGE NOTED THIS EVENING. SITE CLEANED WELL WITH EXCEPT AND NEW STERILE DRESSING APPLIED WITH 3 STRAIN RELIEFS TO MINIMIZE ANY " SAWING " AT THE EXIT SITE. SURG FLOOR STAFF AWARE OF OVERNIGHT THERAPY IN PROGRESS.
[2020-09-09 04:35] LABS: Hematocrit 34.5 % (33.0-51.0); Hemoglobin 11.4 g/dL (11.5-16.0); Mean Corpuscular HGB 31.8 pg (26.0-34.0); Mean Corpuscular Volume 96 fL (80-100); Platelet Count 130 K/mm3 (150-400); RDW Standard Deviation 53.3 fL (35.1-46.3); Red Blood Cell Count 3.58 M/mm3 (3.80-5.20); White Blood Cell Count 9.08 K/mm3 (4.00-11.30)
[2020-09-09 04:53] LABS: Albumin, Blood 2.3 g/dL (3.4-5.0); Anion Gap 6 mmol/L (6-16); Blood Urea Nitrogen 48 mg/dL (8-24); CO2, Blood 30 mmol/L (21-32); Calcium, Blood 8.7 mg/dL (8.5-10.1); Chloride, Blood 105 mmol/L (98-108); Creatinine, Blood 2.09 mg/dL (0.40-1.00); Glomerular Filtration Rate 24 (60-); Glucose, Blood 279 mg/dL (70-99); Magnesium, Blood 1.8 mg/dL (1.6-2.4); Phosphorus, Blood 2.9 mg/dL (2.5-4.9); Potassium, Blood 3.2 mmol/L (3.5-5.5); Sodium, Blood 141 mmol/L (136-145); Vancomycin, Random 18.5 ug/mL
[2020-09-09 05:25] LABS: BASOPHILS PERCENT MAN 0 % (0-2); EOSINOPHILS ABSOLUTE MAN 0.36 K/mm3 (0.00-0.68); EOSINOPHILS PERCENT MAN 4 % (0-6); LYMPHOCYTES % ATYPICAL MANUAL 3 % (0-0); LYMPHOCYTES ABSOLUTE MAN 4.08 K/mm3 (0.84-5.20); LYMPHOCYTES PERCENT MAN 42 % (21-46); MONOCYTES ABSOLUTE MAN 0.72 K/mm3 (0.16-1.47); MONOCYTES PERCENT MAN 8 % (4-13); SEG NEUTROPHILS PERCENT MAN 43 % (41-73); TOTAL CELLS COUNTED 100
--- NOTE | 2020-09-09 05:39 | NUR ---
SHIFT SUMMARY POD1 MID ABD I&D, A/O X4, VSS, TOLERATING PO, VOIDING WELL, NO BM THIS SHIFT, TRANSFERS WELL W/ 1 PERSON ASSIST. DENIES PAIN. NO ACUTE EVENTS THIS SHIFT. CALL LIGHT IN REACH, WILL CONTINUE TO MONITOR AND REPORT TO ONCOMING DAY RN.
--- NOTE | 2020-09-09 12:40 | NUR ---
DIALYSIS-PD PT SEATING IN ROOM EATING BREAKFAST. I DISCONNECTED HER TREATMENT PER MIA. iD 623, UF 589. SURGEON AND HOSPITALIST CAME AND WAS VEIWING HER WOUND. FLUID CLEAR
[2020-09-09] MEDS ORDERED: LEVOFLOXACIN500 MG PO (17:39)
[2020-09-09] MEDS ORDERED: VISBIOME 112.51 EACH PO (17:40)
[2020-09-09] MEDS ORDERED: SULTRIDS PO (17:40)
--- NOTE | 2020-09-09 19:19 | NUR ---
PATIENT DISCHARGE: PATIENT DISCHARGED TO HOME THIS SHIFT. MEDICATION RECONCILIATION COMPLETED; MED LIST FAXED TO [facility] IN [place]. DISCHARGE EDUCATION COMPLETED WITH PATIENT AND FAMILY. PATIENT TRANSPORTED TO EXIT BY [facility] STAFF WITH WHEELCHAIR AT 1917. PATIENT DEPARTED [facility] VIA PRIVATE AUTO.
== END 2020-09-09 19:10 | disposition home or self-care (01) | DRG 856 ==
LOC: ER 11:28 → SURS 15:11
PROVIDERS: Emergency Medicine; Family Medicine; Internal Medicine Nephrology; Physician Assistant; Surgery; ADMIT Hospitalist
PROC: 0J980ZZ Drainage of Abdomen Subcutaneous Tissue and Fascia, Open Approach (ICD-10-PCS; principal; 2020-09-07)
DX: T81.41XA Infection following a procedure, superficial incisional surgical site, initial encounter (principal); N18.6 End stage renal disease; L03.311 Cellulitis of abdominal wall; I12.0 Hypertensive chronic kidney disease with stage 5 chronic kidney disease or end stage renal disease; N25.81 Secondary hyperparathyroidism of renal origin; Z68.41 Body mass index [BMI] 40.0-44.9, adult; E78.5 Hyperlipidemia, unspecified; E87.6 Hypokalemia; E88.09 Other disorders of plasma-protein metabolism, not elsewhere classified; Z99.2 Dependence on renal dialysis; D63.1 Anemia in chronic kidney disease; F32.9 Major depressive disorder, single episode, unspecified; E11.42 Type 2 diabetes mellitus with diabetic polyneuropathy; M54.9 Dorsalgia, unspecified; G89.29 Other chronic pain; E11.22 Type 2 diabetes mellitus with diabetic chronic kidney disease; E03.9 Hypothyroidism, unspecified; Z79.4 Long term (current) use of insulin; Z79.899 Other long term (current) drug therapy; Z88.0 Allergy status to penicillin; Z79.82 Long term (current) use of aspirin; Z88.5 Allergy status to narcotic agent; Z90.49 Acquired absence of other specified parts of digestive tract; Z90.89 Acquired absence of other organs; Y83.8 Other surgical procedures as the cause of abnormal reaction of the patient, or of later complication, without mention of misadventure at the time of the procedure
CPT/HCPCS: 36415; 74176; 80053; 80069; 80202; 82947; 83690; 83735; 85014; 85018; 85025; 87040; 87070; 87075; 87077; 87147; 87186; 87205; 89051; 94660; 94762; 97116; 97162; 97530; 99285-25; A9270; J0692; J1644; J1956; J3370; J7050

== ENCOUNTER 2020-11-22 07:32 | Day surgery (SDC) | payer MEDICARE ==
[~2020-11-22] VITALS: Ht 167.6 cm; Wt 108.0 kg
[~2020-11-22 07:32] MED LIST changes: +LEVOFLOXACIN500 MG PO; +SULTRIDS PO; +VISBIOME 112.51 EACH PO
[2020-11-22] MEDS ORDERED: INSULANI (08:17)
[2020-11-22] MEDS ORDERED: LEVFLO500 (08:19)
--- NOTE | 2020-11-22 11:30 | NUR ---
PT BROUGHT TO RECOVERY ROOM ON [facility], PD CATH EXCHANGE WAS SUCCESSFUL. SITE APPEARS TO BE SOFT, TENDER TO TOUCH, NO BLEEDING OR OOZING NOTED. PT APPEARS DROWSY, EYES CLOSED, SNORING. NO DISTRESS NOTED. CALL LIGHT IN REACH.
--- NOTE | 2020-11-22 12:30 | NUR ---
PT AND DAUGHTER EATING LUNCH, TOLERATES WITH NO DIFFICULTIES. PD CATH SUTURED IN PLACE, STERI STRIPS ON OLD ACCESS SITE AND TUNNELING INSERTION SITE. NO BLEEDING OR OOZING NOTED. PT DENIES PAIN. VSS. CALL LIGHT IN REACH.
--- NOTE | 2020-11-22 13:00 | NUR ---
DISCHARGE INSTRUCTIONS REVIEWED WITH PATIENT AND DAUGHTER. COPIES PROVIDED IN FOLDER. IV REMOVED WITH CATH INTACT, PRESSURE DRESSING APPLIED. NO NEEDED ASSISTANCE. PT TAKEN OUT TO PRIVATE VEHICLE IN W/C, NADN AT TIME OF DISCHARGE.
== END 2020-11-22 13:00 | disposition home or self-care (01) ==
LOC: MHTC 07:32
DX: T85.611A Breakdown (mechanical) of intraperitoneal dialysis catheter, initial encounter (principal); I12.0 Hypertensive chronic kidney disease with stage 5 chronic kidney disease or end stage renal disease; N18.6 End stage renal disease; E11.22 Type 2 diabetes mellitus with diabetic chronic kidney disease; E11.42 Type 2 diabetes mellitus with diabetic polyneuropathy; E03.9 Hypothyroidism, unspecified; E66.9 Obesity, unspecified; G47.33 Obstructive sleep apnea (adult) (pediatric); Z79.4 Long term (current) use of insulin; Z88.0 Allergy status to penicillin; Z88.5 Allergy status to narcotic agent; Z79.82 Long term (current) use of aspirin; Z79.899 Other long term (current) drug therapy
CPT/HCPCS: 49418; 49422; 99152; 99153; C1750; C1769; C1894; J0690; J2250; J3010; J7030; J7040; Q9967

== ENCOUNTER → 2021-01-25 | Outpatient (CLI) | payer MEDICARE | END | disposition home or self-care (01) | LOC: LAB 17:55 | DX: D72.829 Elevated white blood cell count, unspecified (principal) ==

== ENCOUNTER 2021-07-11 07:23 | Inpatient (IN) | payer MEDICARE ==
[~2021-07-11] VITALS: Ht 165.1 cm; Wt 104.3 kg
[~2021-07-11 07:23] MED LIST changes: +ALLO100 PO; +Amlodipine Bes2.5 MG PO; +HUMALOG KW100 UNIT/1; +INSULANI; +INSULANI SC; +LEVFLO500
[2021-07-11 08:05] LABS: BASOPHILS ABSOLUTE AUTO 0.06 K/mm3 (0.00-0.23); BASOPHILS PERCENT AUTO 0 % (0-2); EOSINOPHILS ABSOLUTE AUTO 0.22 K/mm3 (0.00-0.68); EOSINOPHILS PERCENT AUTO 1 % (0-6); Hematocrit 41.6 % (33.0-51.0); Hemoglobin 13.8 g/dL (11.5-16.0); IMMATURE GRAN ABSOLUTE AUTO 0.08 K/mm3 (0.00-0.10); IMMATURE GRAN PERCENT AUTO 0 % (0-1); LYMPHOCYTES ABSOLUTE AUTO 9.88 K/mm3 (0.84-5.20); LYMPHOCYTES PERCENT AUTO 51 % (21-46); MONOCYTES ABSOLUTE AUTO 0.72 K/mm3 (0.16-1.47); MONOCYTES PERCENT AUTO 4 % (4-13); Mean Corpuscular HGB 32.2 pg (26.0-34.0); Mean Corpuscular HGB Conc 33.2 g/dL (31.5-36.5); Mean Corpuscular Volume 97 fL (80-100); Mean Platelet Volume 11.4 fL (9.1-12.4); NEUTROPHILS ABSOLUTE AUTO 8.51 K/mm3 (1.96-9.15); NEUTROPHILS PERCENT AUTO 44 % (41-73); Platelet Count 204 K/mm3 (150-400); RDW Coefficient Variation 14.8 % (11.7-14.2); RDW Standard Deviation 52.6 fL (35.1-46.3); Red Blood Cell Count 4.28 M/mm3 (3.80-5.20); White Blood Cell Count 19.47 K/mm3 (4.00-11.30)
[2021-07-11 08:20] LABS: Magnesium, Blood 2.8 mg/dL (1.6-2.4)
[2021-07-11 08:21] LABS: Bun/Creatinine Ratio 46.3 (12.0-20.0); Calcium, Blood 10.1 mg/dL (8.5-10.1); Creatinine, Blood 2.14 mg/dL (0.40-1.00); International Normalized Ratio 1.06; Potassium, Blood 4.7 mmol/L (3.5-5.5); Prothrombin Time Results 11.1 Sec (9.7-11.5)
[2021-07-11 10:25] LABS: Influenza A, PCR NEGATIVE (NEGATIVE); Influenza B, PCR NEGATIVE (NEGATIVE); SARS-Cov-2 (COVID-19) PCR, MMC NEGATIVE (NEGATIVE)
[2021-07-11 10:26] LABS: Resp Syncytial Virus, PCR POSITIVE (NEGATIVE)
[2021-07-11 15:58] LABS: Source, Urine Catheter
--- NOTE | 2021-07-11 16:15 | NUR ---
FROM ED TO SURGICAL UNIT SLID FROM [facility] TO HOSPITAL BED THEN INTERCEPTED BY DAY SURGERY & TO DAY SURGERY VIA HOSPITAL BED. NO ASSESSMENT OR VS DONE DUE TO PT BEING IN ROOM FOR LESS THAN 3 MINUTES.
[2021-07-11 16:16] LABS: Appearance, Urine Clear (Clear); Bilirubin, Urine Neg (Neg); Blood, Urine Neg (Neg); Color, Urine Yellow (P-Yellow); Glucose Qualitative, Urine Neg (Neg); Ketones, Urine Neg (Neg); Leukocyte Esterase, Urine 1+ (Neg); Nitrite, Urine Neg (Neg); Protein, Urine 3+ (Neg); Urobilinogen, Urine NORM (Normal)
--- NOTE | 2021-07-11 16:25 | NUR ---
INTACT DRAINING URINE. YELLOW
[2021-07-11 16:27] LABS: Red Blood Cells, Urine 0-2 /hpf (0-2); Squamous Epithelial Cells Few /hpf (Few)
[2021-07-11 16:28] LABS: Amorphous Light (0-Heavy); Bacteria Many /hpf; Mucus Light (0-Heavy)
--- NOTE | 2021-07-11 16:46 | NUR ---
INTO SDS ADMISSION STARTED EKG DONE LABS PLACED ON CHART CALL TO DR WILKS TO NOTIFY OF UA RESULTS PLAN TO PROCEDE. CBG DONE AND NOTIFIED ANNESTHESIOLOGIST.
--- NOTE | 2021-07-11 18:00 | NUR ---
07/11/21 1800 Dale Judge PATIENT HAS AREA OF SKIN BREAKDOWN UNDER PANNUS HIP TO HIP, DR. WILKS AWARE AND WILL DO A POSTERIOR APPROACH. PATIENT ARRIVED TO OR WITH CASTANON CATH AND A PERITONEAL DIALYSIS CATH PRESENT.
--- NOTE | 2021-07-12 04:45 | NUR ---
ENDODONTIC ASSISTANT SUMMARY NEW ADMIT FROM THE ED AT START OF SHIFT. PT TAKEN FOR L GILLES HIP REPAIR BY DR WILKS. PT QUITE CONFUSED WHEN SHE ARRIVED BACK FROM PACU BUT HER MENTATION IMPROVED OVER A FEW HOURS AND SEEMS BACK TO BASELINE AT THIS POINT. LEFT SIDE AQUACEL DRESSING C/D/I. PT HAS SOME SWELLING TO BLE WHICH PT STATES IS NORMAL FOR HER, LEFT LEG HIP SLIGHTLY MORE SWOLLEN COMPARED TO RIGHT. SOME SMALL SCATTERED BRUISING ON L SIDE NOTED WELL SOME SKIN BREAKDOWN ON HER BUTTOCK. PT ALSO HAS SOME REDNESS UNDER HER PANUS. PT USING CPAP WHILE SLEEPING. PT HAS DENIED PAIN THUS FAR TONIGHT. CASTANON CATH IN PLACE DRAINING YELLOW URINE. PT HAS NOT YET AMBULATED SINCE SHE CAME BACK FROM PROCEDURE LATE AND WAS VERY TIRED. HAS SLEPT MOST OF SHIFT. VSS, WILL CONTINUE TO MONITOR.
[2021-07-12 05:20] LABS: Hematocrit 35.2 % (33.0-51.0); Hemoglobin 11.4 g/dL (11.5-16.0); Mean Corpuscular HGB 32.4 pg (26.0-34.0); Mean Corpuscular HGB Conc 32.4 g/dL (31.5-36.5); Mean Corpuscular Volume 100 fL (80-100); Mean Platelet Volume 11.7 fL (9.1-12.4); Platelet Count 164 K/mm3 (150-400); RDW Coefficient Variation 14.9 % (11.7-14.2); RDW Standard Deviation 54.5 fL (35.1-46.3); Red Blood Cell Count 3.52 M/mm3 (3.80-5.20); White Blood Cell Count 14.63 K/mm3 (4.00-11.30)
[2021-07-12 05:42] LABS: Albumin, Blood 2.7 g/dL (3.4-5.0); Bilirubin, Total 0.3 mg/dL (0.1-1.0); Bun/Creatinine Ratio 45.5 (12.0-20.0); Creatinine, Blood 2.09 mg/dL (0.40-1.00); Globulin, Blood 2.7 g/dL (2.2-4.0); Potassium, Blood 5.5 mmol/L (3.5-5.5); Total Protein, Blood 5.4 g/dL (6.4-8.2)
--- NOTE | 2021-07-12 07:15 | NUR ---
ASSUMED CARE: PT RESTING QUIETLY. NO ACUTE NEEDS OR CONCERNS AT THIS TIME.
[2021-07-12 07:24] LABS: BASOPHILS PERCENT MAN 0 % (0-2); EOSINOPHILS PERCENT MAN 0 % (0-6); LYMPHOCYTES % ATYPICAL MANUAL 1 % (0-0); LYMPHOCYTES PERCENT MAN 51 % (21-46); MONOCYTES ABSOLUTE MAN 0.58 K/mm3 (0.16-1.47); MONOCYTES PERCENT MAN 4 % (4-13); NEUTROPHILS ABSOLUTE MAN 6.43 K/mm3 (1.96-9.15); SEG NEUTROPHILS PERCENT MAN 44 % (41-73); TOTAL CELLS COUNTED 100
--- NOTE | 2021-07-12 17:55 | NUR ---
SHIFT SUMMARY: PT WORKED WITH PHYSICAL THERAPY TODAY AND GOT UP INTO CHAIR. DRS STATE OK TO DC IF OK WITH PHYSICAL THERAPY. PT'S DAUGHTER SPOKE WITH DISCHARGE PLANNING ABOUT GOING HOME WITH HOME HEALTH RATHER THAN TO FACILITY. PT QUALIFIES FOR THIS WITH PHYSICAL THERAPY AT THIS TIME. SITTING UPRIGHT IN CHAIR, NO ACUTE NEEDS AT PRESENT.
--- NOTE | 2021-07-13 04:46 | NUR ---
BROADCAST CHECKER SUMMARY NO ACUTE CHANGES THIS SHIFT. PT AAOX4 AND PLEASANT. PT REPORTS NO PAIN OF L HIP WHEN AT REST AND MILD PAIN WITH AMBULATION. PREMEDICATED WITH PAIN MEDS PRIOR TO AMBULATING BACK TO BED FROM CHAIR. PT IS A 1 ASSIST WITH FWW AND GB, PT TAKES SMALL SHUFFLING STEPS. AQUACEL DRESSING ON L HIP C/D/I. PLACED MEPILEX DRESSING ON OLD SCABBED WOUND IN GLUTEAL CLEFT THAT OPENED BACK UP. PT STATES WOUND HAS BEEN THERE FOR SEVERAL MONTHS. PT HAS SLEPT WELL THROUGH THE NIGHT. VSS, WILL CONTINUE TO MONITOR.
[2021-07-13 05:03] LABS: Hematocrit 29.8 % (33.0-51.0); Hemoglobin 9.8 g/dL (11.5-16.0); Mean Corpuscular HGB 32.5 pg (26.0-34.0); Mean Corpuscular HGB Conc 32.9 g/dL (31.5-36.5); Mean Corpuscular Volume 99 fL (80-100); Mean Platelet Volume 11.6 fL (9.1-12.4); Platelet Count 130 K/mm3 (150-400); RDW Coefficient Variation 14.8 % (11.7-14.2); RDW Standard Deviation 53.7 fL (35.1-46.3); Red Blood Cell Count 3.02 M/mm3 (3.80-5.20); White Blood Cell Count 11.21 K/mm3 (4.00-11.30)
[2021-07-13 06:20] LABS: Bun/Creatinine Ratio 43.6 (12.0-20.0); Calcium, Blood 8.7 mg/dL (8.5-10.1); Creatinine, Blood 2.02 mg/dL (0.40-1.00); Magnesium, Blood 2.6 mg/dL (1.6-2.4); Potassium, Blood 4.7 mmol/L (3.5-5.5)
--- NOTE | 2021-07-13 18:28 | NUR ---
SHIFT SUMMARY PATIENT ALERT AND ORIENTED THROUGHOUT SHIFT. TOLERATING ADA DIET WITH INSULIN FOR COVERAGE. 1 PERSON SBA WITH FWW AND GAIT BELT. AQUACEL TO LEFT HIP. ASYMPTOMATIC RSV IN DROPLET ISO. PLAN TO DISCHARGE HOME TOMORROW 07/14/21 AND HOME HEALTH TO SEE HER ON 07/15/21. WILL REPORT TO EMBEDDED SYSTEMS DEVELOPER RN.
--- NOTE | 2021-07-14 08:10 | NUR ---
SHIFT SUMMARY POST OP L HIP REPAIR, A/O X4, VSS, TOLERATING PO, VOIDING WELL, AMBULATES c 1 SBA/FWW/GB, ABLE TO MAKE NEEDS KNOWN, REPORTED PAIN 1X THIS SHIFT, MEDICATED PER EMAR. NO ACUTE EVENTS THIS SHIFT. CALL LIGHT IN REACH, REPORT GIVEN TO DAY RN.
[2021-07-14] MEDS ORDERED: DOCUZEN 8.6-501 EACH PO (10:44)
[2021-07-14] MEDS ORDERED: HYDR1TAB94 PO (10:45)
[2021-07-14] MEDS ORDERED: MIRALAX1710 PO (10:46)
[2021-07-14] MEDS ORDERED: XARELTO20 MG PO (10:46)
--- NOTE | 2021-07-14 11:35 | NUR ---
DISCHARGED FAXED PRESCRIPTIONS TO [facility] ON [address] PER PATIENT REQUEST. REMOVED WIRLESS OXIMETRY SENSOR. PROVIDED AQUACEL DRESSING CHANGES. REVIEWED DC PAPERWORK W/PT AND DAUGHTER; VERBALIZED UNDERSTANDING. PT LEFT UNIT IN WC W/POSSESSIONS AND DC PAPERWORK ACCOMPANIED BY DAUGHTER TO CAR OUTSIDE.
== END 2021-07-14 11:32 | disposition home health service (06) | DRG 522 ==
LOC: ER 07:23 → ERHOLD 09:09 → SURS 09:09
PROVIDERS: Internal Medicine; Nurse Practitioner Acute Care; Orthopaedic Surgery; Student in an Organized Health Care Education/Training Program; ADMIT Internal Medicine
PROC: 0SRS0JZ Replacement of Left Hip Joint, Femoral Surface with Synthetic Substitute, Open Approach (ICD-10-PCS; principal; 2021-07-11 17:00)
DX: S72.012A Unspecified intracapsular fracture of left femur, initial encounter for closed fracture (principal); N18.4 Chronic kidney disease, stage 4 (severe); Z20.822 Contact with and (suspected) exposure to COVID-19; E11.22 Type 2 diabetes mellitus with diabetic chronic kidney disease; I12.9 Hypertensive chronic kidney disease with stage 1 through stage 4 chronic kidney disease, or unspecified chronic kidney disease; E03.9 Hypothyroidism, unspecified; D72.829 Elevated white blood cell count, unspecified; J44.9 Chronic obstructive pulmonary disease, unspecified; E78.5 Hyperlipidemia, unspecified; G47.33 Obstructive sleep apnea (adult) (pediatric); J22 Unspecified acute lower respiratory infection; B97.4 Respiratory syncytial virus as the cause of diseases classified elsewhere; E66.01 Morbid (severe) obesity due to excess calories; W18.11XA Fall from or off toilet without subsequent striking against object, initial encounter; Z68.38 Body mass index [BMI] 38.0-38.9, adult; Z79.899 Other long term (current) drug therapy; Z79.82 Long term (current) use of aspirin; Z79.4 Long term (current) use of insulin; Z88.5 Allergy status to narcotic agent; Z88.0 Allergy status to penicillin; Y92.002 Bathroom of unspecified non-institutional (private) residence as the place of occurrence of the external cause
CPT/HCPCS: 0241U; 36415; 51702; 73502; 80048; 80053; 81001; 82947; 83735; 85025; 85027; 85610; 85730; 87077; 87086; 87186; 93005; 93010; 94660; 94762; 96374; 96375; 97110; 97110-CQ; 97116-CQ; 97162; 97530; 99285-25; A9270; C1776; J0171; J0690; J1170; J1815; J1885; J2270; J2370; J2704; J3010; J7030

== ENCOUNTER 2021-10-11 10:16 | Observation (INO) | payer MEDICARE ==
[~2021-10-11] VITALS: Ht 170.2 cm; Wt 106.6 kg
[~2021-10-11 10:16] MED LIST changes: +DOCUZEN 8.6-501 EACH PO; +HYDR1TAB94 PO; +MIRALAX1710 PO; +XARELTO20 MG PO
[2021-10-11 11:11] LABS: Hematocrit 36.2 % (33.0-51.0); Hemoglobin 11.4 g/dL (11.5-16.0); Mean Corpuscular HGB Conc 31.5 g/dL (31.5-36.5); Mean Corpuscular Volume 95 fL (80-100); Mean Platelet Volume 11.5 fL (9.1-12.4); Platelet Count 170 K/mm3 (150-400); RDW Coefficient Variation 16.8 % (11.7-14.2); White Blood Cell Count 15.83 K/mm3 (4.00-11.30)
[2021-10-11 11:35] LABS: Albumin, Blood 3.4 g/dL (3.4-5.0); Albumin/Globulin Ratio 0.9 (0.8-1.8); Bilirubin, Total 0.3 mg/dL (0.1-1.0); Bun/Creatinine Ratio 32.6 (12.0-20.0); Calcium, Blood 9.4 mg/dL (8.5-10.1); Creatinine, Blood 2.67 mg/dL (0.40-1.00); Globulin, Blood 3.8 g/dL (2.2-4.0); Potassium, Blood 4.8 mmol/L (3.5-5.5); Total Protein, Blood 7.2 g/dL (6.4-8.2)
[2021-10-11 11:56] LABS: BASOPHILS ABSOLUTE MAN 0.15 K/mm3 (0.00-0.23); BASOPHILS PERCENT MAN 1 % (0-2); EOSINOPHILS ABSOLUTE MAN 0.31 K/mm3 (0.00-0.68); EOSINOPHILS PERCENT MAN 2 % (0-6); LYMPHOCYTES ABSOLUTE MAN 12.34 K/mm3 (0.84-5.20); LYMPHOCYTES PERCENT MAN 78 % (21-46); MONOCYTES ABSOLUTE MAN 0.63 K/mm3 (0.16-1.47); MONOCYTES PERCENT MAN 4 % (4-13); NEUTROPHILS ABSOLUTE MAN 2.37 K/mm3 (1.96-9.15); SEG NEUTROPHILS PERCENT MAN 15 % (41-73); TOTAL CELLS COUNTED 100
--- NOTE | 2021-10-11 12:44 | NUR ---
DIALYSIS-PD NURSING VIDEO GAME TESTER CALLED WITH INSTRUCTIONS TO GO TO ER RM 10 TO TAKE A SAMPLE OF PD FLUID FOR LAB. TOOK SUPPLIES TO ROOM, PT STATES THAT SHE DOESN'T HAVE FLUID IN. SAYS SHE DOES A "IN AND OUT" RINSE PERIODICALLY. BUT DOESN'T LEAVE FLUID IN. DR CARABALLO CALLED WITH THIS INFORMATION. STILL WANTS A SAMPLE. WILL INSTILL FLUID WHEN PT RETURNS FROM ULTRASOUND.
[2021-10-11] MEDS ORDERED: ALLO100 PO (13:11)
[2021-10-11] MEDS ORDERED: AMLO10 PO (13:12)
[2021-10-11] MEDS ORDERED: ASPI81CH PO (13:14)
[2021-10-11] MEDS ORDERED: BUME2 PO (13:15)
[2021-10-11] MEDS ORDERED: DOCUZEN 8.6-501 EACH PO (13:16)
[2021-10-11] MEDS ORDERED: ESCI20 PO (13:17)
[2021-10-11] MEDS ORDERED: GABA300 PO (13:19)
[2021-10-11] MEDS ORDERED: Norco 5-325 MG PO (13:20)
[2021-10-11] MEDS ORDERED: BASAGLAR K100 UNIT/3 SC (13:21)
[2021-10-11] MEDS ORDERED: SYNTHROID75 MCG PO (13:22)
[2021-10-11] MEDS ORDERED: MIRALAX11910 PO (13:24)
[2021-10-11] MEDS ORDERED: Simvastatin20 MG PO (13:25)
[2021-10-11] MEDS ORDERED: CLIN150 PO (13:40)
--- NOTE | 2021-10-11 14:26 | NUR ---
DILAYSIS-ER -PD WARMED A 2 LITER 1.5% DEXTROSE DIANEAL BAG ON PD MACHINE. TOOK IT DOWN TO THE ER. CONNECTED PER PROTOCAL AND INSERTED 1 LITER, CLAMPED OFF, LEFT CONNECTED. AFTER COMPLETING A HD PT'S TX, I WILL TAKE SPECIMAN BAG FOR THE LAB AND DRAIN THE REST.
--- NOTE | 2021-10-11 17:52 | NUR ---
PT ADMITTED TO ROOM 303 AT 1610 VIA GOURNEY, AMBULATED INDEPENDANT WITH WALKER TO BATHROOM AND VOIDED 1000ML CLEAR YELLOW URINE. ORIENTED TO ROOM SET UP CALL LIGHT AND SAFETY. U.S STARTED ON L LEG
--- NOTE | 2021-10-11 18:37 | NUR ---
PHOEBE DIFFERENTIAL TESTER HERE 1820 TO DRAW SPECIMEN FROM P.Yumi WATKINS FOR LAB AND CX
[2021-10-11 18:41] LABS: Automated BF RBC Count 0.002 M/mm3 (0-0); Automated BF WBC Count 0.892 K/mm3 (0-999); Body Fluid WBC Count 892 /mm3 (0-999)
[2021-10-11 18:47] LABS: Color, Body Fluid L Yellow (None-Yellow); RBC Count, Body Fluid 2000 /mm3 (0-0)
[2021-10-11 18:48] LABS: Appearance, Body Fluid Cloudy (Clear)
--- NOTE | 2021-10-11 18:59 | NUR ---
DIALYSIS-PD DRAINED SOLUTION FROM PD CATH PER PROTOCAL. DENIES PAIN. TOOK SAMPLE, LABEDLED, HAND CARRIED TO THE LAB. CLEANED SITE, APPLIED DRESSING. SITE CLEAR, FLUID PINKISH,YELLOWISH WHITE COLOR.
[2021-10-11 19:12] LABS: Protein, Body Fluid 0.7 g/dL
[2021-10-11 20:32] LABS: Total Cell Count, Body Fluid 100
--- NOTE | 2021-10-11 20:48 | NUR ---
DIALYSIS-PD PT CONNECTED IN AND OUT X3 FLUSH WITH LAST FILL 2000 ML DIANEAL 1.5 % WITH ANCEF 1 GM AND FORTAZ 1 GM. SITE CLEAR.
[2021-10-12 05:15] LABS: Hematocrit 33.3 % (33.0-51.0); Hemoglobin 10.6 g/dL (11.5-16.0); Mean Corpuscular HGB 30.3 pg (26.0-34.0); Mean Corpuscular HGB Conc 31.8 g/dL (31.5-36.5); Mean Corpuscular Volume 95 fL (80-100); Platelet Count 171 K/mm3 (150-400); RDW Coefficient Variation 16.9 % (11.7-14.2); RDW Standard Deviation 59.1 fL (35.1-46.3); White Blood Cell Count 15.24 K/mm3 (4.00-11.30)
--- NOTE | 2021-10-12 05:57 | NUR ---
SHIFT SUMMARY PT RESTED WELL, NO C/O PAIN, LAVONNE PO, VOIDING WITHOUT DIFFICULTY. PERITONEAL DIALYSIS INFUSING PER SURGICAL TERRITORY MANAGER. RLE WITH DRSG C/D/I, LLE WITH 2+ EDEMA NOTED, PT WEARING HOME CPAP WHILE SLEEPING. VSS, SB/SR ON TELE, ANTICIPATE D/C WHEN MEDICALLY STABLE.
[2021-10-12 07:17] LABS: Albumin/Globulin Ratio 0.9 (0.8-1.8); Bilirubin, Total 0.3 mg/dL (0.1-1.0); Bun/Creatinine Ratio 32.7 (12.0-20.0); Calcium, Blood 9.2 mg/dL (8.5-10.1); Creatinine, Blood 2.57 mg/dL (0.40-1.00); Globulin, Blood 3.5 g/dL (2.2-4.0); Magnesium, Blood 2.5 mg/dL (1.6-2.4); Phosphorus, Blood 3.9 mg/dL (2.5-4.9); Potassium, Blood 4.4 mmol/L (3.5-5.5); Total Protein, Blood 6.5 g/dL (6.4-8.2)
[2021-10-12 08:05] LABS: BASOPHILS ABSOLUTE MAN 0.15 K/mm3 (0.00-0.23); BASOPHILS PERCENT MAN 1 % (0-2); EOSINOPHILS ABSOLUTE MAN 0.76 K/mm3 (0.00-0.68); EOSINOPHILS PERCENT MAN 5 % (0-6); LYMPHOCYTES ABSOLUTE MAN 12.03 K/mm3 (0.84-5.20); LYMPHOCYTES PERCENT MAN 79 % (21-46); MONOCYTES ABSOLUTE MAN 0.45 K/mm3 (0.16-1.47); MONOCYTES PERCENT MAN 3 % (4-13); NEUTROPHILS ABSOLUTE MAN 1.82 K/mm3 (1.96-9.15); SEG NEUTROPHILS PERCENT MAN 12 % (41-73); TOTAL CELLS COUNTED 100
--- NOTE | 2021-10-12 12:09 | NUR ---
DIALYSIS PD AFTER SPEAKING TO DR CARABALLO AT 0700 WENT UP TO DC PD TX. THE MACHINE WAS IN AN ALARM STATE. LOW UF. THE TREATMENT SHOULD HAVE BEEN DONE DURING THE NIGHT AND ANTIBIOTIC INSTILLED. IT SHOULD HAVE HAD AT LEAST A 6 HOUR PERIOD OF TIME DWELLING. I CORRECTED THE ALARM AND RESTARTED THE PROGRAM SO THE ANTIBIOTICS COULD BE INSTILLED. CALLED DR CARABALLO AND INFORMED HIM OF THE ERROR. WILL WAIT FOR 4-6 HOURS AND THEN TAKE THE SAMPLE. REPORTED TO CHARGE NURSE.
--- NOTE | 2021-10-12 12:20 | NUR ---
DIALYSIS-PD 1000 DC'ED PD TREATMENT PER PROTOCAL. NO UF.
[2021-10-12 15:08] LABS: Body Fluid WBC Count 350 /mm3 (0-999)
[2021-10-12 15:33] LABS: RBC Count, Body Fluid 550 /mm3 (0-0)
[2021-10-12 15:36] LABS: Appearance, Body Fluid Clear (Clear); Color, Body Fluid Yellow (None-Yellow)
[2021-10-12 16:24] LABS: Total Cell Count, Body Fluid 100
--- NOTE | 2021-10-12 18:23 | NUR ---
SHIFT SUMMARY: NO ACUTE EVENTS. NO EVENTS ON TELEMETRY, SB-SR 57-65. USING CPAP WHILE SLEEPING, ON OXIMETRY. GETTING UP TO BR WITH 4WW AND SBA. R HEEL ULCER COVERED BY DRESSING, UNNA BOOT ON LLE. FLUID DRAW FROM PERITONEAL DALYSIS CATHETER BY HD RN. WILL NEED TO BE SET UP WITH [facility] OUTPT AND WILL NEED PD MACHINE FOR HOME PRIOR TO D/C.
--- NOTE | 2021-10-12 20:13 | NUR ---
DIALYSIS - PD PT CONNECTED TO 3 IN AND OUT FLUSHES AND LAST FILL WITH ANTIBIOTICS. SITE CLEAR.
--- NOTE | 2021-10-13 04:39 | NUR ---
SHIFT SUMMARY: PATIENT COMPLETED PERITONEAL DIALYSIS AT APPROX 400AM. PATIENT DID NOT EXPRESS ANY PAIN/DISCOMFORT. CPAP USED AT HS. TELE = NSR/SB. LLE EDEMA UNNA BOOT IN PLACE. NO SIGNIFINCAT EVENTS OVERNIGHT.
[2021-10-13 05:21] LABS: Hematocrit 33.5 % (33.0-51.0); Hemoglobin 10.6 g/dL (11.5-16.0)
[2021-10-13 05:51] LABS: Albumin, Blood 2.9 g/dL (3.4-5.0); Anion Gap 7 mmol/L (6-16); Blood Urea Nitrogen 73 mg/dL (8-24); Bun/Creatinine Ratio 29.4 (12.0-20.0); CO2, Blood 26 mmol/L (21-32); Calcium, Blood 9.2 mg/dL (8.5-10.1); Chloride, Blood 106 mmol/L (98-108); Creatinine, Blood 2.48 mg/dL (0.40-1.00); Glomerular Filtration Rate 18 (60-); Glucose, Blood 180 mg/dL (70-99); Magnesium, Blood 2.5 mg/dL (1.6-2.4); Phosphorus, Blood 3.3 mg/dL (2.5-4.9); Potassium, Blood 4.1 mmol/L (3.5-5.5); Sodium, Blood 139 mmol/L (136-145)
--- NOTE | 2021-10-13 07:20 | NUR ---
PT RESTING COMFORTABLY UPON ENTERING ROOM. IN BED WITH BIPAP ON. WAKENS EASILY TO FULL ORIENT. CCPD THERAPY COMPLETE ORDERED. PT AESEPTICALLY DISCONNECTED AND CAPPED. CATHETER SECURED IN PT'S PD BELT. CYCLER STRIPPED AND CLEANED. DR CARABALLO CONSULTED BY PHONE FOR NEWORDERS / PLAN OF CARE.
[2021-10-13] MEDS ORDERED: VISBIOME 112.51 EACH PO (11:36)
[2021-10-13] MEDS ORDERED: ACET325 PO (11:36)
[2021-10-13] MEDS ORDERED: BUME2 PO (11:36)
[2021-10-13] MEDS ORDERED: LEVOFLOXACIN250 M2 PO (11:37)
--- NOTE | 2021-10-13 14:01 | NUR ---
PT DISCHARGED TO HOME WITH HER DAUGHTER. IV SALINE LOCK AND TELEMETRY REMOVED WITHOUT INCIDENT. VERBALIZED UNDERSTANDING OF D/C INSTRUCTIONS. WE ARE WAITING FOR CXR REPORT BEFORE FAXING ADMISSION INFORMATION TO [employer] SO PT CAN START PD SOON. OFF UNIT VIA W/C AT 1237. NO BELONGINGS LEFT BEHIND IN ROOM.
--- NOTE | 2021-10-13 14:35 | NUR ---
[facility]- RENAL PANEL, PROGRESS NOTES, H&P, CHEST XRAY AND ADMISSION INTAKE FORM FAXED TO [facility]TRAL ADMISSION. HEP B PANEL DRAWN THIS AM AND CURRENTLY PENDING.
--- NOTE | 2021-10-13 15:33 | NUR ---
RECEIVED PHONE CALL FROM JEREMY AT [facility] ADMISSIONS REGARDING PATIENT INFROMATION FAXED TODAY. THIS AUTHOR EXPLAINED PT'S COURSE PRIOR TO AND DURING HOSPITALIZATION AND RATIONALE FOR RE-STARTING PD. HEPATITIS LABS WERE DRAWN THIS MORNING AND RESULTS ARE PENDING. GAVE DR. CARABALLO'S OFFICE PHONE NUMBER THE POINT OF CONTACT FOR FURTHER QUESTIONS PT HAS BEEN DISCHARGED HOME. THERE WILL BE NO STAFF HERE ON FRIDAY THAT WILL BE FAMILIAR WITH THIS CASE AND HOSPITAL WAS NOT INVOLVED THIS PROCESS STARTED LATE ON FRIDAY AFTERNOON/EVENING. NICK AND MICHELLE AT [facility] ARE AWARE OF THIS PATIENT AND PENDING ADMISSION.
[2021-10-14 10:08] LABS: HBSAG SCREEN Negative (Negative); HCV AB 0.1 (0.0-0.9); HEP A AB, IGM Negative (Negative); HEP B CORE AB, IGM Negative (Negative)
== END 2021-10-13 12:37 | disposition home or self-care (01) ==
LOC: ER 10:16 → ERHOLD 10:17 → MEDS 10:17 → ERHOLD 10:17 → ER 13:14 → MEDS 16:10
PROVIDERS: Emergency Medicine; Internal Medicine Nephrology; Physician Assistant; ADMIT Internal Medicine
DX: T85.71XA Infection and inflammatory reaction due to peritoneal dialysis catheter, initial encounter (principal); I12.0 Hypertensive chronic kidney disease with stage 5 chronic kidney disease or end stage renal disease; N18.6 End stage renal disease; E11.22 Type 2 diabetes mellitus with diabetic chronic kidney disease; E03.9 Hypothyroidism, unspecified; D72.829 Elevated white blood cell count, unspecified; D64.9 Anemia, unspecified; R60.9 Edema, unspecified; S90.821A Blister (nonthermal), right foot, initial encounter; L08.9 Local infection of the skin and subcutaneous tissue, unspecified; K65.9 Peritonitis, unspecified; Z88.0 Allergy status to penicillin; Z88.5 Allergy status to narcotic agent; Z79.4 Long term (current) use of insulin; Z99.2 Dependence on renal dialysis; Z91.15 Patient's noncompliance with renal dialysis; Y84.1 Kidney dialysis as the cause of abnormal reaction of the patient, or of later complication, without mention of misadventure at the time of the procedure; Z66 Do not resuscitate
CPT/HCPCS: 36415; 71045; 80053; 80069; 82947; 83690; 83735; 84100; 84157; 85014; 85018; 85025; 89051; 93971; 94660; 94762; 99284; A9270; J0690; J0713; J1644; J1815

== ENCOUNTER → 2021-10-29 | Outpatient (CLI) | payer MEDICARE ==
[~2021-10-29] MED LIST changes: +ACET325 PO; +AMLO10 PO; +ASPI81CH PO; +BASAGLAR K100 UNIT/3 SC; +CLIN150 PO; +ESCI20 PO; +LEVOFLOXACIN250 M2 PO; +MIRALAX11910 PO; +Norco 5-325 MG PO; +SYNTHROID75 MCG PO; +Simvastatin20 MG PO
[2021-10-29 12:13] LABS: Automated BF WBC Count 0.111 K/mm3 (0-999); Body Fluid WBC Count 111 /mm3 (0-999)
[2021-10-29 12:40] LABS: RBC Count, Body Fluid 208 /mm3 (0-0)
[2021-10-29 13:23] LABS: Appearance, Body Fluid Clear (Clear); Color, Body Fluid L Yellow (None-Yellow); Total Cell Count, Body Fluid 55
== END | disposition home or self-care (01) ==
LOC: LAB 11:24 → LAB SHORT 11:24
PROVIDERS: Internal Medicine Nephrology
DX: R85.5 Abnormal microbiological findings in specimens from digestive organs and abdominal cavity (principal)
CPT/HCPCS: 89051

== ENCOUNTER 2022-06-05 12:46 | Day surgery (SDC) | payer MEDICARE ==
[~2022-06-05] VITALS: Ht 167.6 cm; Wt 99.5 kg
== END 2022-06-05 16:30 | disposition home or self-care (01) ==
LOC: ORSCSDS 12:46
PROVIDERS: Internal Medicine Gastroenterology
PROC: 0DJ08ZZ Inspection of Upper Intestinal Tract, Via Natural or Artificial Opening Endoscopic (ICD-10-PCS; principal; 2022-06-05 14:15)
PROC: 0D757ZZ Dilation of Esophagus, Via Natural or Artificial Opening (ICD-10-PCS; principal; 2022-06-05 14:15)
DX: R13.10 Dysphagia, unspecified (principal); G47.33 Obstructive sleep apnea (adult) (pediatric); E11.9 Type 2 diabetes mellitus without complications; I10 Essential (primary) hypertension; E78.00 Pure hypercholesterolemia, unspecified; Z79.899 Other long term (current) drug therapy; E66.9 Obesity, unspecified; Z68.35 Body mass index [BMI] 35.0-35.9, adult
CPT/HCPCS: A9270; J2704; J7120

== ENCOUNTER 2022-09-16 11:59 | Emergency (ER) | payer MEDICARE ==
[~2022-09-16] VITALS: Ht 170.2 cm; Wt 101.6 kg
[2022-09-16] MEDS ORDERED: CLIN150 PO (12:22)
== END 2022-09-16 12:23 | disposition home or self-care (01) ==
LOC: ER 11:59
DX: L02.212 Cutaneous abscess of back [any part, except buttock and flank] (principal); I12.9 Hypertensive chronic kidney disease with stage 1 through stage 4 chronic kidney disease, or unspecified chronic kidney disease; E11.22 Type 2 diabetes mellitus with diabetic chronic kidney disease; N18.9 Chronic kidney disease, unspecified; E03.9 Hypothyroidism, unspecified; Z88.0 Allergy status to penicillin; Z88.5 Allergy status to narcotic agent; Z79.899 Other long term (current) drug therapy; Z79.82 Long term (current) use of aspirin; Z79.4 Long term (current) use of insulin
CPT/HCPCS: 99282

== ENCOUNTER 2023-02-11 21:22 | Inpatient (IN) | payer MEDICARE ==
[~2023-02-11] VITALS: Ht 167.6 cm; Wt 98.9 kg
[2023-02-11 21:48] LABS: Hematocrit 32.4 % (33.0-51.0); Hemoglobin 10.7 g/dL (11.5-16.0); Mean Corpuscular HGB 33.5 pg (26.0-34.0); Mean Corpuscular Volume 102 fL (80-100); Mean Platelet Volume 12.3 fL (9.1-12.4); Platelet Count 114 K/mm3 (150-400); RDW Coefficient Variation 12.9 % (11.7-14.2); RDW Standard Deviation 48.2 fL (35.1-46.3); Red Blood Cell Count 3.19 M/mm3 (3.80-5.20); White Blood Cell Count 23.58 K/mm3 (4.00-11.30)
[2023-02-11 21:52] LABS: Source, Urine Straight Cath
[2023-02-11 21:58] LABS: Bilirubin, Urine Neg (Neg); Blood, Urine 1+ (Neg); Glucose Qualitative, Urine 3+ (Neg); Ketones, Urine Neg (Neg); Leukocyte Esterase, Urine Neg (Neg); Nitrite, Urine Neg (Neg); Protein, Urine 3+ (Neg); Urobilinogen, Urine NORM (Normal)
[2023-02-11 22:12] LABS: Albumin, Blood 3.2 g/dL (3.4-5.0); Albumin/Globulin Ratio 0.9 (0.8-1.8); Bilirubin, Total 0.4 mg/dL (0.1-1.0); Bun/Creatinine Ratio 18.7 (12.0-20.0); Calcium, Blood 10.4 mg/dL (8.5-10.1); Creatinine, Blood 4.27 mg/dL (0.40-1.00); Globulin, Blood 3.4 g/dL (2.2-4.0); Potassium, Blood 4.4 mmol/L (3.5-5.5); Total Protein, Blood 6.6 g/dL (6.4-8.2)
[2023-02-11 22:31] LABS: Influenza A, PCR NEGATIVE (NEGATIVE); Influenza B, PCR NEGATIVE (NEGATIVE); Resp Syncytial Virus, PCR NEGATIVE (NEGATIVE)
[2023-02-11 22:55] LABS: Appearance, Urine Clear (Clear); Color, Urine Yellow (P-Yellow)
[2023-02-11 22:57] LABS: Bacteria Few /hpf; Hyaline Casts 0-2 /lpf (0-2); Squamous Epithelial Cells Rare /hpf (Few); White Blood Cells, Urine 0-2 /hpf (0-5)
[2023-02-11 23:54] LABS: SARS-Cov-2 (COVID-19) PCR, MMC POSITIVE (NEGATIVE)
[2023-02-11 23:56] LABS: BASOPHILS PERCENT MAN 0 % (0-2); EOSINOPHILS ABSOLUTE MAN 0.23 K/mm3 (0.00-0.68); EOSINOPHILS PERCENT MAN 1 % (0-6); LYMPHOCYTES ABSOLUTE MAN 17.92 K/mm3 (0.84-5.20); LYMPHOCYTES PERCENT MAN 76 % (21-46); MONOCYTES ABSOLUTE MAN 0.94 K/mm3 (0.16-1.47); MONOCYTES PERCENT MAN 4 % (4-13); NEUTROPHILS ABSOLUTE MAN 4.48 K/mm3 (1.96-9.15); SEG NEUTROPHILS PERCENT MAN 19 % (41-73); TOTAL CELLS COUNTED 100
[2023-02-12 02:28] VITALS: BP 178/61
[2023-02-12] MEDS ORDERED: LOSARTAN POTASS25 M2 PO (04:05)
[2023-02-12] MEDS ORDERED: INSULIN LI100 UNIT/5 SC (04:05)
[2023-02-12] MEDS ORDERED: MIDO5 PO (04:06)
--- NOTE | 2023-02-12 04:18 | NUR ---
SHIFT SUMMARY 87 YR F ADMITTED THIS SHIFT FOR SEPSIS. FULL CODE. PT IS COVID POSITIVE AND IN ISOLATION. PT IS VERY TIRED UPON ADMISSION AND IS A POOR HISTORIAN FOR HER ADMISSION ASSESSMENT SHE KEPT NODDING OFF TO SLEEP. 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 SHE IS CURRENTLY ON 2 L O2 BY ID AND HER BREATHING APPEARS LABORED. LUNG SOUNDS ARE DIMINISHED. SHE IS PLEASANT AND COOPERATIVE WITH CARE BUT WAS VERY TIRED AND JUST WANTED TO SLEEP. Casengo WAS PLACED AND IS WORKING WELL. PT'S RIGHT FOOT IS IN AN ABDUCTED POSITION AND PT STATES SHE IS UNABLE TO WALK. SHE STATES IT HAS BEEN THIS WAY FOR A WEEK AND SHE HAS BEEN USING A WHEELCHAIR AT HOME.
[2023-02-12 06:42] LABS: Albumin, Blood 2.7 g/dL (3.4-5.0); Albumin/Globulin Ratio 0.9 (0.8-1.8); Bilirubin, Total 0.3 mg/dL (0.1-1.0); Bun/Creatinine Ratio 19.9 (12.0-20.0); Calcium, Blood 9.7 mg/dL (8.5-10.1); Creatinine, Blood 4.08 mg/dL (0.40-1.00); Potassium, Blood 4.1 mmol/L (3.5-5.5); Total Protein, Blood 5.7 g/dL (6.4-8.2)
[2023-02-12 06:46] LABS: Hematocrit 29.4 % (33.0-51.0); Hemoglobin 9.6 g/dL (11.5-16.0); Mean Corpuscular HGB 33.8 pg (26.0-34.0); Mean Corpuscular HGB Conc 32.7 g/dL (31.5-36.5); Mean Corpuscular Volume 104 fL (80-100); Mean Platelet Volume 12.3 fL (9.1-12.4); Platelet Count 99 K/mm3 (150-400); RDW Coefficient Variation 12.9 % (11.7-14.2); RDW Standard Deviation 48.7 fL (35.1-46.3); Red Blood Cell Count 2.84 M/mm3 (3.80-5.20); White Blood Cell Count 22.54 K/mm3 (4.00-11.30)
[2023-02-12 07:43] VITALS: BP 108/46
[2023-02-12 07:46] LABS: BASOPHILS PERCENT MAN 0 % (0-2); EOSINOPHILS PERCENT MAN 0 % (0-6); LYMPHOCYTES ABSOLUTE MAN 17.58 K/mm3 (0.84-5.20); LYMPHOCYTES PERCENT MAN 78 % (21-46); MONOCYTES ABSOLUTE MAN 0.22 K/mm3 (0.16-1.47); MONOCYTES PERCENT MAN 1 % (4-13); NEUTROPHILS ABSOLUTE MAN 4.73 K/mm3 (1.96-9.15); SEG NEUTROPHILS PERCENT MAN 21 % (41-73); TOTAL CELLS COUNTED 100
[2023-02-12 15:27] VITALS: BP 144/51
--- NOTE | 2023-02-12 16:29 | NUR ---
Would photo/care left le-wound cleaned with wound cleaned of yellow, thisck, ororious slim. recovered with mepelex. right heel protector removed-skin wet, white, intact. left news videotape editor. left foot dorsum-see photo- wound cleaned with wound opening machine cleaner, skin white, masurated. Old dressing saturated. Left news videotape editor to dry. 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 Dressing removed d/t being saturated and skin white and maserated. Left buttock dressing removed-Dressing saturated with urine. Skin maserated and white. Left dylan to dry. no wound noted. COntinue POC.
--- NOTE | 2023-02-12 17:21 | NUR ---
SHIFT NOTE PT AWAKE AND FEELING BETTER. DIALYSIS SETTING UP FOR P.D TONIGHT. VSS. STILL NEEDING OXYGEN. VOICE QUALITY BETTER. CPAP AT BEDSDIE FOR NOC USE. DENIED CHEST PAIN,SOB OR DIZZINESS. VOIDED 500 ML OF FIDE URINE. CONTINUE POC.
[2023-02-12 20:05] LABS: Automated BF WBC Count 0.284 K/mm3 (0-999)
[2023-02-12 20:08] LABS: Body Fluid WBC Count 284 /mm3 (0-999); RBC Count, Body Fluid 2000 /mm3 (0-0)
[2023-02-12 20:09] LABS: Color, Body Fluid L Yellow (None-Yellow)
[2023-02-12 20:35] LABS: Total Cell Count, Body Fluid 100
[2023-02-12 20:39] VITALS: BP 167/67
--- NOTE | 2023-02-12 22:08 | NUR ---
pd rn to pt room 363 to set up and program cycler at approx 2100. cycler ready to connect pt at approx 2140. pt connected and stayed for initial drain and begining of 1st fill, no alarms occured. pt relaxing and resting in bed.
--- NOTE | 2023-02-12 22:37 | NUR ---
PD RN TO PT ROOM 363 AT APPROX 1700 TO COLLECT EFFLUENT SAMPLE FOM PD CATH FOR COMPLETE CELL COUNT WITH DIFF, CULTURE AND SENSITIVITY AND GRAM STAIN. NO FLUID CAME FROM CATH SO I INSTEADED 300 ML AT 1800 AND ALLOWED THE FLUID TO SIT FRO APPROX 2 HRS AND COLLECTED SAMPLE AT 1900. WAITED FOR RESULTS AND CONTATCED CARABALLO WITH RESULTS AND FOR ORDER.
--- NOTE | 2023-02-12 23:12 | NUR ---
[employer] MANAGER REPORTS PERITONEAL DIALYSIS APPROX 5 HR RUN. [employer] MANAGER LEFT FOR NIGHT.
[2023-02-13 04:29] VITALS: BP 137/54
--- NOTE | 2023-02-13 05:01 | NUR ---
SHIFT SUMMARY PATIENT HAD NO ACUTE CHANGES. AXOX 4 AND ONE ASSIST TO BSC. CBG 272. PIV REMAINS INTACT. IV ABX X 2 INFUSED. ON 2L O2 NC. USES CPAP AT NIGHT. VSS/AFEBRILE. DENIES CHEST PAIN, SOB, AND N/V. PERITONEAL DIALYSIS THIS SHIFT. COVID 19+ AND ENHANCED PRECAUTIONS. CALL LIGHT IN REACH. BED IN LOWEST POSITION. WILL CONTINUE TO MONITOR UNTIL DAY SHIFT NURSE ASSUMES CARE.
[2023-02-13 05:52] LABS: Hematocrit 29.1 % (33.0-51.0); Hemoglobin 9.6 g/dL (11.5-16.0); Mean Corpuscular HGB 33.3 pg (26.0-34.0); Mean Corpuscular Volume 101 fL (80-100); Mean Platelet Volume 12.2 fL (9.1-12.4); Platelet Count 108 K/mm3 (150-400); RDW Coefficient Variation 12.6 % (11.7-14.2); Red Blood Cell Count 2.88 M/mm3 (3.80-5.20); White Blood Cell Count 16.73 K/mm3 (4.00-11.30)
[2023-02-13 06:27] LABS: Albumin, Blood 2.6 g/dL (3.4-5.0); Anion Gap 8 mmol/L (6-16); Blood Urea Nitrogen 89 mg/dL (8-24); Bun/Creatinine Ratio 22.8 (12.0-20.0); CO2, Blood 26 mmol/L (21-32); Calcium, Blood 9.1 mg/dL (8.5-10.1); Chloride, Blood 104 mmol/L (98-108); Creatinine, Blood 3.91 mg/dL (0.40-1.00); Glomerular Filtration Rate 11 (60-); Glucose, Blood 343 mg/dL (70-99); Phosphorus, Blood 5.6 mg/dL (2.5-4.9); Potassium, Blood 4.3 mmol/L (3.5-5.5); Sodium, Blood 138 mmol/L (136-145)
[2023-02-13 08:09] VITALS: BP 154/61
[2023-02-13 09:22] LABS: Automated BF WBC Count 0.033 K/mm3 (0-999)
--- NOTE | 2023-02-13 10:45 | NUR ---
PD RN TO PATIENTS ROOM AT APPROX 0820, PT WAS SITTING UP IN BED RELAXING. SHE ASKED ME ABOUT HER BREAKFAST AND I LET HER KNOW THAT I WOULD SPEAK WITH HER NURSE WHO SAID IT JUST ARRIVED AND BROUGHT IT IN MOMENTS LATER. I DICONNECTED PT AT APPROX 0845 AM AND TOOK AN EFFLUENT SAMPLE AND SENT IT TO THE LAB FOR A CELL COUNT. TOTAL UF: 274 ML, IDRAIN: 57ML, AVERAGE DWELL TIME: 1:17, LOST DWELL: 0:11
[2023-02-13 10:46] LABS: RBC Count, Body Fluid 155 /mm3 (0-0)
[2023-02-13 11:11] LABS: Appearance, Body Fluid Clear (Clear); Color, Body Fluid L Yellow (None-Yellow); Total Cell Count, Body Fluid 100
[2023-02-13 11:13] LABS: Body Fluid WBC Count 33 /mm3 (0-999)
--- NOTE | 2023-02-13 16:04 | NUR ---
SHIFT NOTE PT BACK TO BED AFTER BEING UP AT BEDSIDE SINCE LUNCH. WALKING SLOWLY WITH FWW. LEFT LEG SORE/PAINFUL TO STAND ON. VSS. 2L N/C. BED LOW LOCKED. CALL LIGHT WITH IN REACH. OCCASIONAL COUGH. DROPLET ISOLATION PRECAUTIONS. FAMILY HERE TO VISIT. CONTINUE POC.
[2023-02-13 17:14] VITALS: BP 166/60
[2023-02-13 19:18] VITALS: BP 168/63
--- NOTE | 2023-02-13 21:27 | NUR ---
pd rn to pt rm 363 at approx 2100 to set up cycler machine and prime lines. pt was sitting up in bed and bedside rn was at bedside giving pm meds and starting iv antibiotics. asked pt how she was doing an dshe said that she is feeling a little stuffy. i did notice that she sounds more nasaly when talking which i did not notice this morning when i disconected her. pt connected per protocol and aseptic technique at approx 2130 and initial drain and fill 1 of 3 started withouy any alarms. notified bedside rn of alarms and phone number.
--- NOTE | 2023-02-14 04:20 | NUR ---
SHIFT SUMMARY PATIENT HAD NO ACUTE CHANGES. AXOX 4 AND ONE ASSIST TO BSC. 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 ON 3L O2 NC. CBG 310. USES CPAP AT NIGHT. PIV REMAINS INTACT. IV ABXS INFUSED. VSS/AFEBRILE. DENIES CHEST PAIN, SOB, AND N/V. CALL LIGHT IN REACH. BED IN LOWEST POSITION. WILL CONTINUE TO MONITOR UNTIL DAY SHIFT NURSE ASSUMES CARE.
[2023-02-14 04:56] LABS: Hematocrit 31.7 % (33.0-51.0); Hemoglobin 10.5 g/dL (11.5-16.0); Mean Corpuscular HGB 33.5 pg (26.0-34.0); Mean Corpuscular HGB Conc 33.1 g/dL (31.5-36.5); Mean Corpuscular Volume 101 fL (80-100); Mean Platelet Volume 12.1 fL (9.1-12.4); Platelet Count 119 K/mm3 (150-400); RDW Coefficient Variation 12.5 % (11.7-14.2); RDW Standard Deviation 46.4 fL (35.1-46.3); Red Blood Cell Count 3.13 M/mm3 (3.80-5.20); White Blood Cell Count 19.63 K/mm3 (4.00-11.30)
[2023-02-14 06:03] VITALS: BP 171/64
[2023-02-14 06:38] LABS: Albumin, Blood 2.8 g/dL (3.4-5.0); Anion Gap 8 mmol/L (6-16); Blood Urea Nitrogen 82 mg/dL (8-24); Bun/Creatinine Ratio 23.5 (12.0-20.0); CO2, Blood 25 mmol/L (21-32); Calcium, Blood 9.2 mg/dL (8.5-10.1); Chloride, Blood 105 mmol/L (98-108); Creatinine, Blood 3.49 mg/dL (0.40-1.00); Glomerular Filtration Rate 12 (60-); Glucose, Blood 301 mg/dL (70-99); Phosphorus, Blood 4.5 mg/dL (2.5-4.9); Sodium, Blood 138 mmol/L (136-145)
[2023-02-14 07:48] VITALS: BP 150/59
--- NOTE | 2023-02-14 09:45 | NUR ---
DIALYSIS PD DC PD TX PER PROTOCAL. FLUID CLEAR. ID 56 ML, UF 239 ML. PT ALERT AND AWAKE.
[2023-02-14] MEDS ORDERED: DECADRON6 M1 PO (13:23)
[2023-02-14] MEDS ORDERED: CEFU500T30 PO (13:23)
[2023-02-14] MEDS ORDERED: HUMALOG KW100 UNIT/1 SC (13:24)
--- NOTE | 2023-02-14 17:25 | NUR ---
SHIFT/DISCHARGE SUMMARY: PATIENT A&OX4. CALM, PLEASANT AND COOPERATIVE c CARE. USES CALL LIGHT APPROPRIATELY AND ABLE TO MAKE NEEDS KNOWN. AT BEGINNING OF SHIFT PATIENT WAS ON 3L OF O2 VIA NC c SPO2 OF 100%, O2 WAS TITRATED DOWN TO 2L VIA NC c SPO2 RANGES 96-98%. O2 WAS TIRATED DOWN AGAIN TO 1L c SPO2 RANGES 95-97%. PATIENT WAS PLACED ON RA AT AROUND 0900 OXYGENATION HAS BEEN MONITORED c CONTINUES PULSE OX IN ROOM. PATIENT SPO2 ON RA RANGES 94-98%. PATIENT DENIES CP/PRESSURE, SOB, N/V AND GENERALIZED PAIN. PATIENT BS RANGES 216-226, MEDICATED c INSULIN PER EMAR COVERAGE. RECEIVED SCHEDULED MEDS PER EMAR. PATIENT HAD HOME O2 EVAL, AMBULATES ABOUT 100 FT IN HALLWAY AND BACK IN ROOM USING FWW c RT. PER RT PATIENT DOES NOT NEEDING O2 TO GO HOME, SPO2 94% ON RA WITH AMBULATION. IV TO LAC DC'D. PATIENT IS EATING AND DRINKING WELL. VITAL SIGNS REVIEWED. PATIENT EDUCATED ON NON SMOKING POLICY, RISK OF INJURY AND IGNITION SOURCES WHEN O2 IN USE. PATIENT DENIES SMOKING AND VERBALIZED UNDERSTANDING. PATIENT DISCHARGE HOME. DISCHARGE INSTRUCTIONS PACKET GIVEN TO PATIENT. EDUCATE PATIENT REGARDING ADMITTING DX OF SEPSIS D/T COVID POSITIVE, S/S, TX, NEW PRESCRIBED HOME MEDICATIONS. PATIENT STATED UNDERSTANDING AND NO FURTHER QUESTIONS. [facility] ALL PATIENT PERSONAL BELONGINGS WERE SENT HOME c THE PATIENT. PATIENT LEFT THE ROOM AT AROUND 1710. PATIENT WAS TRANSPORTED VIA WHEELCHAIR BY DIRECTOR OF ACCOUNTING STAFF, TRUE SANTIAGO TO PATIENT ENTRANCE.
== END 2023-02-14 17:40 | disposition home or self-care (01) | DRG 871 ==
LOC: ER 21:22 → MEDS 02-12 01:35
PROVIDERS: Emergency Medicine; Family Medicine; Internal Medicine; Internal Medicine Nephrology; ADMIT Internal Medicine
PROC: 3E03329 Introduction of Other Anti-infective into Peripheral Vein, Percutaneous Approach (ICD-10-PCS; principal; 2023-02-12)
PROC: 3E0DX3Z Introduction of Anti-inflammatory into Mouth and Pharynx, External Approach (ICD-10-PCS; 2023-02-12)
PROC: 8E0ZXY6 Isolation (ICD-10-PCS; 2023-02-12)
PROC: 5A09357 Assistance with Respiratory Ventilation, Less than 24 Consecutive Hours, Continuous Positive Airway Pressure (ICD-10-PCS; 2023-02-12)
PROC: 3E1M39Z Irrigation of Peritoneal Cavity using Dialysate, Percutaneous Approach (ICD-10-PCS; 2023-02-13)
DX: A41.89 Other specified sepsis (principal); G92.8 Other toxic encephalopathy; J15.9 Unspecified bacterial pneumonia; J96.01 Acute respiratory failure with hypoxia; U07.1 COVID-19; N18.6 End stage renal disease; J12.82 Pneumonia due to coronavirus disease 2019; I12.0 Hypertensive chronic kidney disease with stage 5 chronic kidney disease or end stage renal disease; N17.9 Acute kidney failure, unspecified; N25.81 Secondary hyperparathyroidism of renal origin; C95.10 Chronic leukemia of unspecified cell type not having achieved remission; D69.6 Thrombocytopenia, unspecified; M71.22 Synovial cyst of popliteal space [Baker], left knee; R60.0 Localized edema; E11.22 Type 2 diabetes mellitus with diabetic chronic kidney disease; E03.9 Hypothyroidism, unspecified; F32.A Depression, unspecified; E87.70 Fluid overload, unspecified; E86.9 Volume depletion, unspecified; E88.09 Other disorders of plasma-protein metabolism, not elsewhere classified; D63.1 Anemia in chronic kidney disease; E83.52 Hypercalcemia; E11.42 Type 2 diabetes mellitus with diabetic polyneuropathy; Z99.2 Dependence on renal dialysis; Z90.49 Acquired absence of other specified parts of digestive tract; Z90.89 Acquired absence of other organs; Z98.49 Cataract extraction status, unspecified eye; Z79.899 Other long term (current) drug therapy; Z79.82 Long term (current) use of aspirin; Z79.811 Long term (current) use of aromatase inhibitors; Z88.5 Allergy status to narcotic agent; Z88.0 Allergy status to penicillin; Z79.4 Long term (current) use of insulin; Z79.2 Long term (current) use of antibiotics
CPT/HCPCS: 0241U; 36415; 71045; 80053; 80069; 81001; 82947; 83605; 83735; 84145; 84484; 85025; 85027; 87070; 87075; 87205; 89051; 93005; 93010; 93971; 94660; 94761; 94762; 96361; 96365; 96367; 97112; 97162; 97165; 97530; 97535; 99285-25; A9270; J0456; J0696; J0881; J1644; J1815; J7030; J7050; P9612

== ENCOUNTER 2023-05-22 17:36 | Inpatient (IN) | payer MEDICARE ==
[~2023-05-22] VITALS: Ht 170.2 cm; Wt 98.0 kg
[~2023-05-22 17:36] MED LIST changes: +CEFU500T30 PO; +DECADRON6 M1 PO; +HUMALOG KW100 UNIT/1 SC; +INSULIN LI100 UNIT/5 SC; +LOSARTAN POTASS25 M2 PO; +MIDO5 PO
[2023-05-22 18:10] LABS: Hematocrit 36.3 % (33.0-51.0); Mean Corpuscular HGB 34.4 pg (26.0-34.0); Mean Corpuscular HGB Conc 33.1 g/dL (31.5-36.5); Mean Corpuscular Volume 104 fL (80-100); Mean Platelet Volume 11.9 fL (9.1-12.4); Platelet Count 113 K/mm3 (150-400); RDW Coefficient Variation 14.7 % (11.7-14.2); RDW Standard Deviation 55.8 fL (35.1-46.3); Red Blood Cell Count 3.49 M/mm3 (3.80-5.20); White Blood Cell Count 17.12 K/mm3 (4.00-11.30)
[2023-05-22 18:34] LABS: Albumin, Blood 3.2 g/dL (3.4-5.0); Albumin/Globulin Ratio 0.8 (0.8-1.8); Bilirubin, Total 0.2 mg/dL (0.1-1.0); Bun/Creatinine Ratio 18.1 (12.0-20.0); Calcium, Blood 9.7 mg/dL (8.5-10.1); Creatinine, Blood 5.18 mg/dL (0.40-1.00); Globulin, Blood 3.8 g/dL (2.2-4.0); Magnesium, Blood 2.4 mg/dL (1.6-2.4); Potassium, Blood 4.4 mmol/L (3.5-5.5)
[2023-05-22 19:04] LABS: Source, Urine Straight Cath
[2023-05-22 19:09] LABS: Appearance, Urine Clear (Clear); Bilirubin, Urine Neg (Neg); Blood, Urine Neg (Neg); Glucose Qualitative, Urine 2+ (Neg); Ketones, Urine Neg (Neg); Leukocyte Esterase, Urine Neg (Neg); Nitrite, Urine Neg (Neg); Protein, Urine 3+ (Neg); Urobilinogen, Urine NORM (Normal)
[2023-05-22 19:18] LABS: Color, Urine Pale Yellow (P-Yellow)
[2023-05-22 19:22] LABS: Bacteria Rare /hpf; Hyaline Casts 0-2 /lpf (0-2); Red Blood Cells, Urine 0-2 /hpf (0-2); Squamous Epithelial Cells Few /hpf (Few); White Blood Cells, Urine 0-2 /hpf (0-5)
[2023-05-22 19:32] LABS: International Normalized Ratio 1.04; Prothrombin Time Results 10.9 Sec (9.7-11.5)
[2023-05-22] MEDS ORDERED: Simvastatin10 MG PO (19:33)
[2023-05-22] MEDS ORDERED: CATAPRES0.1 MG PO (19:33)
[2023-05-22] MEDS ORDERED: BACLOFEN10 M4 PO (19:33)
[2023-05-22] MEDS ORDERED: FURO80 PO (19:34)
[2023-05-22] MEDS ORDERED: RENVELA800 MG PO (19:34)
[2023-05-22] MEDS ORDERED: PANTOPRAZOLE SO40 M2 PO (19:34)
[2023-05-22 19:35] LABS: BASOPHILS PERCENT MAN 0 % (0-2); EOSINOPHILS PERCENT MAN 0 % (0-6); LYMPHOCYTES ABSOLUTE MAN 13.35 K/mm3 (0.84-5.20); LYMPHOCYTES PERCENT MAN 78 % (21-46); MONOCYTES ABSOLUTE MAN 0.17 K/mm3 (0.16-1.47); MONOCYTES PERCENT MAN 1 % (4-13); NEUTROPHILS ABSOLUTE MAN 3.59 K/mm3 (1.96-9.15); SEG NEUTROPHILS PERCENT MAN 21 % (41-73); TOTAL CELLS COUNTED 100
[2023-05-22] MEDS ORDERED: ALLOPURINOL100 M1 PO (19:35)
[2023-05-22 19:42] LABS: Influenza A, PCR NEGATIVE (NEGATIVE); Influenza B, PCR NEGATIVE (NEGATIVE); Resp Syncytial Virus, PCR NEGATIVE (NEGATIVE); SARS-Cov-2 (COVID-19) PCR, MMC NEGATIVE (NEGATIVE)
[2023-05-22 22:25] LABS: U Amphetamine Screen Not Detected; U Barbituate Screen Not Detected; U Benzodiazapine Screen Not Detected; U Buprenorphine Screen Not Detected; U Cannabinoids Screen Not Detected; U Cocaine Screen Not Detected; U Methadone Screen Not Detected; U Methamphetamine Screen Not Detected; U Opiates Screen Not Detected; U Oxycodone Screen Not Detected; U Phencyclidine Screen Not Detected
--- NOTE | 2023-05-22 23:40 | NUR ---
PATIENT ARRIVED FROM ER TO ROOM 311 VIA GURNEY AND ONE PERSON ASSIST. PATIENT TRANSFERED FROM [facility] TO HOSPITAL BED VIA SLIDE SHEET AND THREE PERSON ASSIST. PATIENT UP TO ROOM 311 WITH 1 L O2 VIA NASAL CANNULA. PATIENT IS SLEEPING UPON ARRIVAL.
[2023-05-22 23:47] VITALS: BP 180/65
--- NOTE | 2023-05-23 02:05 | NUR ---
BLADDER SCAN DONE-PATIENT HAS >1000ML IN BLADDER. HOSPITALIST CALLED-ORDERED ONE TIME STRAIGHT CATH WITH BLADDER SCAN 6 HOURS POST STRAIGHT CATH.
[2023-05-23 04:25] LABS: Hematocrit 34.2 % (33.0-51.0); Mean Corpuscular HGB 34.2 pg (26.0-34.0); Mean Corpuscular HGB Conc 32.2 g/dL (31.5-36.5); Mean Corpuscular Volume 106 fL (80-100); Mean Platelet Volume 11.6 fL (9.1-12.4); NRBC ABSOLUTE 0.02 K/mm3 (0.00-0.02); NRBC Auto 0.1 /100 WBC (0.0-0.2); Platelet Count 109 K/mm3 (150-400); RDW Coefficient Variation 14.7 % (11.7-14.2); RDW Standard Deviation 56.8 fL (35.1-46.3); Red Blood Cell Count 3.22 M/mm3 (3.80-5.20); White Blood Cell Count 20.88 K/mm3 (4.00-11.30)
[2023-05-23 04:29] VITALS: BP 157/54
[2023-05-23 04:47] LABS: Albumin/Globulin Ratio 0.9 (0.8-1.8); Bilirubin, Total 0.2 mg/dL (0.1-1.0); Bun/Creatinine Ratio 17.2 (12.0-20.0); Calcium, Blood 9.3 mg/dL (8.5-10.1); Creatinine, Blood 5.16 mg/dL (0.40-1.00); Globulin, Blood 3.5 g/dL (2.2-4.0); Potassium, Blood 4.2 mmol/L (3.5-5.5); Total Protein, Blood 6.5 g/dL (6.4-8.2)
--- NOTE | 2023-05-23 04:52 | NUR ---
PROVIDER NOTIFIED. PROVIDER NOTIFIED THAT PATIENT DIFFICULT TO AROUSE, RESPONDS TO PAIN BY SAYING "OUCH". VITAL SIGNS ARE STABLE AT B/P-157/54 PULSE-58 RESPIRATIONS-14 SPO2-100% ON 1 LITER OF O2 VIA NASAL CANNULA. PATIENT HAD 100 MCGS OF FENTYAL IN THE ER AT 1825. PROVIDER ADVISED TO CONTINUE TO MONITOR, AND POSSIBLY MOVE PATIENT TO A ROOM CLOSER TO THE NURSING STATION.
--- NOTE | 2023-05-23 05:03 | NUR ---
SHIFT SUMMARY PATIENT IS DIFFICULT TO AROUSE, WOKE UP TO LAB ASKING SEVERAL TIMES "IM IN THE HOSPITAL" EVEN AFTER TELLING PATIENT YES, YOU ARE IN THE HOSPITAL. PATIENT HAS BEEN SLEEPING SINCE ARRIVAL TO ROOM 311. TALKED TO PATIENTS DAUGHTER RODOLFO WHO REPORTS HER MOM ABRAN USES A WALKER AND AT TIMES A WHEEL CHAIR AT BASELINE, SHE FILLS HERS AND HER HUSBANDS PILL BOXES, PLAYS CARDS AND IS ALERT AND ORIENTED. PATIENT RESPONDS WITH "OUCH" TO PAIN FROM STERNAL RUB. AT THIS TIME PATIENT IS NOT ABLE TO MAKE HER NEEDS KNOWN. PATIENT IS INCONTINENT AT THIS TIME WITH ATTENDS IN PLACE. PATIENT HAS PD CATHETER TO LEFT ABDOMEN FOR DIALYSIS-CLEANED WITH CHLORHEXIDINE PAD AND COVERED WITH GUAZE AND TAPE. PATIENT SEE FOR NEPHROLOGY-CONSULT PLACED. BED IS LOCKED IN THE LOWEST POSITION WITH CALL LIGHT IN REACH.
[2023-05-23 06:58] LABS: BASOPHILS PERCENT MAN 0 % (0-2); EOSINOPHILS PERCENT MAN 1 % (0-6); LYMPHOCYTES ABSOLUTE MAN 12.94 K/mm3 (0.84-5.20); LYMPHOCYTES PERCENT MAN 62 % (21-46); MONOCYTES ABSOLUTE MAN 0.62 K/mm3 (0.16-1.47); MONOCYTES PERCENT MAN 3 % (4-13); NEUTROPHILS ABSOLUTE MAN 7.09 K/mm3 (1.96-9.15); SEG NEUTROPHILS PERCENT MAN 34 % (41-73); TOTAL CELLS COUNTED 100
[2023-05-23 07:18] VITALS: BP 169/60
[2023-05-23 07:56] LABS: Base Excess Venous 0.2 mmol/L; Bicarbonate Venous 24.4 mmol/L (24.0-30.0); PCO2 Venous 39.5 mmHg (38-42); pH Blood Venous 7.41 (7.34-7.37)
[2023-05-23 08:08] LABS: Hemoglobin 11.6 g/dL (11.5-16.0); Mean Corpuscular HGB Conc 32.2 g/dL (31.5-36.5); Mean Corpuscular Volume 106 fL (80-100); Mean Platelet Volume 11.5 fL (9.1-12.4); Platelet Count 121 K/mm3 (150-400); RDW Coefficient Variation 14.8 % (11.7-14.2); RDW Standard Deviation 57.1 fL (35.1-46.3); Red Blood Cell Count 3.41 M/mm3 (3.80-5.20); White Blood Cell Count 22.11 K/mm3 (4.00-11.30)
[2023-05-23 08:31] LABS: Albumin, Blood 3.1 g/dL (3.4-5.0); Albumin/Globulin Ratio 0.8 (0.8-1.8); Bilirubin, Total 0.2 mg/dL (0.1-1.0); Bun/Creatinine Ratio 17.2 (12.0-20.0); Calcium, Blood 9.5 mg/dL (8.5-10.1); Creatinine, Blood 4.94 mg/dL (0.40-1.00); Globulin, Blood 3.8 g/dL (2.2-4.0); Potassium, Blood 4.6 mmol/L (3.5-5.5); Total Protein, Blood 6.9 g/dL (6.4-8.2)
--- NOTE | 2023-05-23 10:08 | NUR ---
0730 CHIEF LEARNING OFFICER CALLED SECONDARY TO NEURO STATUS CHANGES. Pt remains able to respond to sternal rub and vaguely open eys. Upon my assessment, pupils are equal in size, sluggish. Left arm flaccid, other times will raise right arm herself, but arm becomes flaccid. Unable to squeeze hands or follow requests. Unable to voice words, just moans. Occasional jerking noted. BP 169/60 HR 50, Pulse Ox 100% 2L NC, Resp 14 irregular. Fentanyl IV given in ED. Narcan given IV x2 during CHIEF LEARNING OFFICER. EKG indicates SB with 1st degree AVB/BBB. PD cath intact LLQ. Labs drawn, see results. Dr. Frazier at bedside. Per daughter, pt has sleep apnea and will bring pt cpap this am.
[2023-05-23 16:09] VITALS: BP 172/65
--- NOTE | 2023-05-23 17:52 | NUR ---
SHIFT SUMMARY PHARMACOVIGILANCE SPECIALIST this am, see previous note. No change in neuro status, other than she at times will open eyes to verbal stimuli, then close right away. Unable to follow commands. Bladder scan with 623ml noted. TO order from Dr Carcamo to straight cath x1 complete. PD RN at bedside to start treatment. Family at bedside. Will continue to monitor shift.
--- NOTE | 2023-05-23 18:07 | NUR ---
PT connected to CCPD night Tx at approx 1745pm. Entered the room at approx 1700pm to set up cycler machine and prep patient for tx. PT bedside RN and PCT were in the room doing PT care. Waited for them to be finished and programed machine and TX per protocol. Changed PT PD exit site dressing. Exit site is WNL, no drainage or excessive redness/swelling or signs of skin irritation or infection observed. Site cleaned with Except and new dressing bandage applied. Cleaned PD catheter with Acavis and connected PT at approx 1745PM. Family and RN were present for this connection and bedside RN provided 2nd RN witness sigature on Consent form, pt unable to sign for herself and no medical power of estate attorney present. Stayed to ensure first fill started. Left PT in the care of her nurse and family present.
[2023-05-23 19:26] VITALS: BP 167/54
[2023-05-23] MEDS ORDERED: MIDODRINE HCL10 M6 PO (23:18)
--- NOTE | 2023-05-24 04:42 | NUR ---
PT NOT ORIENTED, FAMILY FRIENDS AT BEDSIDE, PT IN MIDDLE OF PERITONEAL DIALYSIS, NEURO CHECKS Q2 SHOW NO CHANGE IN PT CONDITION, PUPILS STILL REACTIVE YET SLUGGISH AND PT RESPONDS TO PAIN ONLY. PT HAS AT TIME AWOKE AND LOOKED ME IN THE EYES BUT HASNT SPOKEN WITN INTENT TO COMMUNICATE. DIALYSIS FINISHED AND BLADDER SCAN WAS DONE SHOWING 500MLS STILL IN BLADDER ONCE MD WAS NOTIFIED, STRAIGHT CATH WAS PERFORMED AND 550 ML OF URINE WAS EMPTIED FROM BLADDER, PT LAVONNE, BUT WAS CONTINOUSLY TRYING TO STOP PROCEDURE. NO CHANGE IN PT CONDITION AND VSS. WILL CONT TO MONITOR.
[2023-05-24 04:50] LABS: Hematocrit 36.8 % (33.0-51.0); Mean Corpuscular HGB 33.7 pg (26.0-34.0); Mean Corpuscular HGB Conc 32.6 g/dL (31.5-36.5); Mean Corpuscular Volume 103 fL (80-100); Mean Platelet Volume 11.6 fL (9.1-12.4); Platelet Count 115 K/mm3 (150-400); RDW Coefficient Variation 14.8 % (11.7-14.2); RDW Standard Deviation 55.5 fL (35.1-46.3); Red Blood Cell Count 3.56 M/mm3 (3.80-5.20); White Blood Cell Count 18.73 K/mm3 (4.00-11.30)
[2023-05-24 05:17] VITALS: BP 159/83
[2023-05-24 05:27] LABS: Albumin, Blood 3.1 g/dL (3.4-5.0); Albumin/Globulin Ratio 0.8 (0.8-1.8); Bilirubin, Total 0.3 mg/dL (0.1-1.0); Bun/Creatinine Ratio 17.2 (12.0-20.0); Calcium, Blood 9.3 mg/dL (8.5-10.1); Creatinine, Blood 4.29 mg/dL (0.40-1.00); Globulin, Blood 3.7 g/dL (2.2-4.0); Magnesium, Blood 2.3 mg/dL (1.6-2.4); Phosphorus, Blood 5.8 mg/dL (2.5-4.9); Potassium, Blood 4.1 mmol/L (3.5-5.5); Total Protein, Blood 6.8 g/dL (6.4-8.2)
[2023-05-24 05:51] LABS: BASOPHILS PERCENT MAN 0 % (0-2); EOSINOPHILS ABSOLUTE MAN 0.18 K/mm3 (0.00-0.68); EOSINOPHILS PERCENT MAN 1 % (0-6); LYMPHOCYTES % ATYPICAL MANUAL 6 % (0-0); LYMPHOCYTES ABSOLUTE MAN 14.42 K/mm3 (0.84-5.20); LYMPHOCYTES PERCENT MAN 71 % (21-46); MONOCYTES ABSOLUTE MAN 0.37 K/mm3 (0.16-1.47); MONOCYTES PERCENT MAN 2 % (4-13); NEUTROPHILS ABSOLUTE MAN 3.74 K/mm3 (1.96-9.15); SEG NEUTROPHILS PERCENT MAN 20 % (41-73); TOTAL CELLS COUNTED 100
[2023-05-24 07:01] VITALS: BP 150/53
--- NOTE | 2023-05-24 08:55 | NUR ---
DIALYSIS PD PT IN BED ON HER SIDE WITH CPAP ON. DOESN'T RESOND TO ME TALKING TO HER. DISCONNECTED PT FROM TX PER PROTOCOL. ID 1 ML. UF 110 ML. AVERAGE TIME 1:19. DISCONNECTED FROM TX 0750. DRESSIG CLEAR AND INTACT. FLUID CLEAR.
--- NOTE | 2023-05-24 17:04 | NUR ---
SHIFT SUMMARY Pt verbally aroused at 1600 with daughter. Pupils more reactive to light. see neuro assessment. Still not following command. Repositioned frequently for comfort. Panus moist/red. Miconazole powder ordered. Indwelling lyons placed as ordered. Brief open to air. Cpap removed this am, continuous pulse ox remains 95% on RA. Daughter Alyssia request to leave cpap off. Blister later noted to nose. Will need mepiplex placed before applying cpap back on for sleep tonight.
--- NOTE | 2023-05-24 18:41 | NUR ---
[place] tinged sputum noted. Dr. Noyola informed. Spoke with pharmacist who states Heparin SQ doesnt require renal dosing adjustment.
[2023-05-24 19:29] VITALS: BP 177/82
--- NOTE | 2023-05-24 20:10 | NUR ---
DIALYSIS - PD 1929 BROUGHT EQUIPMENT TO PT'S ROOM. PT MORE AWAKE THEN THE LAST TIME I SAW. CONNECTED PT TO TX AT 1944. 2.5% DEXTROSE, 6000 ML BAG AND 2.5 % DEXTROSE 2L BAG. 5 HRS AND 20 MIN TX. 3 CYCLES NO LAST FILL 2000 ML FILL VOLUME. CONNECTED PT AT 1944 TO TX. FAMILY CAME I FINISHED. SPOKE TO PT'S NURSE.
--- NOTE | 2023-05-25 04:36 | NUR ---
REPORT RECEIVED VERIFIED. PT MUCH MORE AWAKE THIS EVENING, FAMILY FRIENDS AT BEDSIDE ASSISTING IN PT CARE, PT ABLE TO OPEN EYES AND MAKE FACIAL EXPRESSIONS , SQUEEZ HANDS WHEN ASKED TOO. DIALYSIS STARTED FOR PT AND WILL CONT FOR NEXT 5 HOURS. PT NOT RECEIVEING BLOOD SUGAR MEDS FROM HOME SO I CHECKED SUGAR, FSBS WAS ELEVATED AND MD WAS NOTIFIED, INSULIN WAS THEN GIVEN. NEW IV STATED TO LEFT FOREARM, PT LAVONNE WELL. DIALYSIS FINISHED, DEVICE LEFT ON PER NURSE. COMPLETE BED BATH DONE PT LAVONNE WELL, SKIN INTACT. WILL CONT TO MONITOR.
[2023-05-25 04:59] LABS: Hematocrit 37.5 % (33.0-51.0); Hemoglobin 12.3 g/dL (11.5-16.0); Mean Corpuscular HGB 33.7 pg (26.0-34.0); Mean Corpuscular HGB Conc 32.8 g/dL (31.5-36.5); Mean Corpuscular Volume 103 fL (80-100); Mean Platelet Volume 11.9 fL (9.1-12.4); Platelet Count 143 K/mm3 (150-400); RDW Coefficient Variation 14.6 % (11.7-14.2); RDW Standard Deviation 54.5 fL (35.1-46.3); Red Blood Cell Count 3.65 M/mm3 (3.80-5.20); White Blood Cell Count 23.03 K/mm3 (4.00-11.30)
[2023-05-25 05:00] VITALS: BP 150/51
[2023-05-25 05:38] LABS: BAND PERCENT MAN 5 % (0-8); BASOPHILS PERCENT MAN 0 % (0-2); EOSINOPHILS PERCENT MAN 0 % (0-6); LYMPHOCYTES % ATYPICAL MANUAL 3 % (0-0); LYMPHOCYTES ABSOLUTE MAN 12.89 K/mm3 (0.84-5.20); LYMPHOCYTES PERCENT MAN 53 % (21-46); MONOCYTES ABSOLUTE MAN 0.69 K/mm3 (0.16-1.47); MONOCYTES PERCENT MAN 3 % (4-13); NEUTROPHILS ABSOLUTE MAN 9.44 K/mm3 (1.96-9.15); SEG NEUTROPHILS PERCENT MAN 36 % (41-73); TOTAL CELLS COUNTED 100
[2023-05-25 05:46] LABS: Albumin/Globulin Ratio 0.9 (0.8-1.8); Bilirubin, Total 0.4 mg/dL (0.1-1.0); Bun/Creatinine Ratio 17.4 (12.0-20.0); Calcium, Blood 9.2 mg/dL (8.5-10.1); Creatinine, Blood 3.84 mg/dL (0.40-1.00); Globulin, Blood 3.4 g/dL (2.2-4.0); Magnesium, Blood 2.1 mg/dL (1.6-2.4); Phosphorus, Blood 4.3 mg/dL (2.5-4.9); Potassium, Blood 3.6 mmol/L (3.5-5.5); Total Protein, Blood 6.4 g/dL (6.4-8.2)
[2023-05-25 07:39] VITALS: BP 195/94
--- NOTE | 2023-05-25 08:03 | NUR ---
DIAYSIS-PD 0745 PT MUCH MORE ALERT. ABLE TO ANSWER SIMPLE QUESTIONS. ID 2ML. UF 133 ML. AVERAGE TIME DWELL 1:12. SITE CLEAR. VERY SLIGHT RED COLOR TO PD FLUID. NO HEPARIN USED LAST NIGHT. DCED TX PER PROTOCAL.
[2023-05-25 10:29] VITALS: BP 164/74
[2023-05-25 15:44] VITALS: BP 154/72
--- NOTE | 2023-05-25 17:45 | NUR ---
SHIFT SUMMARY: Pt awake and alert this shift, forgetful at times. Will ask at times if she is safe and if she is alive. Daughter at bedside with reassurance. PERRLA. Augustin hand grasp equal in grasp. Jerking subsided. Gen weakness noted and tires with conversation. Trial sips of water successful. ADA CLD advance as tolerated ordered. No cough noted. Clinamix infusing as ordered. BM today. Romero with yellow output. PD RN at bedside to connect for daily PD. Resp even nonlabored on RA. Cpap at night for sleep. Family at bedside with appreciation verbalized.
--- NOTE | 2023-05-25 17:46 | NUR ---
PD RN TO PT ROOM AT APPROX 1720 TO SET UP PD CYCLER FOR NIGHT CCPD TX. PT SITTING UP IN BED WITH FRIENDS AND FAMILY IN THE ROOM VISITING. PT WAS ALERT AND TALKING TO FAMILY. SHE STATEDS SHE IS FREE OF PAIN. PT IS ORIENTED TO SELF AND SITUATION. DILAYSIS CLEAT MAKER PER DAVITA PROTOCOL AND PET CONNECT AT APPROX 1750PM. NO COMPLCIATIONS. STAYED WHILE TX STARTED IT INFORMERLY [facility] FLO AND BEGAN THE 1ST FILL.
[2023-05-25 19:36] VITALS: BP 163/67
[2023-05-26 02:58] VITALS: BP 150/69
--- NOTE | 2023-05-26 04:48 | NUR ---
SHIFT SUMMARY ABRAN WAS ALERT AND WITH FAMILY AT START OF SHIFT, ORIENTED TO SELF AND PERSON. PERITONEAL DIALYSIS IN PROGRESS, PER REPORT RNS NOT TO ADJUST STOP OR DISCONNECT DIALYSIS WHEN COMPLETE. CLINAMIX INFUSING. PT BLOOD GLUCOSE IS BEING DIFFICULT TO CONTROL AT THIS TIME WITH CURRENT COVERAGE. INITIAL DRAW @2023 OF 398. COVERAGE PROVIDED AT MEDIUM SC PER EMAR (5U) DOCTOR NOTIFIED. FOLLOW UP CBG AT 4 WAS 400. HOSPITALIST NOTIFIED AGAIN DR. GALVEZ GAVE ORDERS FOR 10U REGULAR INSULIN NOW, WHICH WAS GIVEN. MOST RECENT CBG 370 @ 0255. PT IN BED AT LOW POSITION WITH CALL LIGHT IN REACH. WILL CONTINUE TO MONITOR.
[2023-05-26 05:08] LABS: Hematocrit 36.4 % (33.0-51.0); Hemoglobin 12.2 g/dL (11.5-16.0); Mean Corpuscular HGB 34.4 pg (26.0-34.0); Mean Corpuscular HGB Conc 33.5 g/dL (31.5-36.5); Mean Corpuscular Volume 103 fL (80-100); Mean Platelet Volume 11.6 fL (9.1-12.4); Platelet Count 116 K/mm3 (150-400); RDW Coefficient Variation 14.7 % (11.7-14.2); RDW Standard Deviation 55.4 fL (35.1-46.3); Red Blood Cell Count 3.55 M/mm3 (3.80-5.20); White Blood Cell Count 23.65 K/mm3 (4.00-11.30)
[2023-05-26 05:52] LABS: Albumin, Blood 2.8 g/dL (3.4-5.0); Albumin/Globulin Ratio 0.8 (0.8-1.8); Bilirubin, Total 0.4 mg/dL (0.1-1.0); Bun/Creatinine Ratio 21.7 (12.0-20.0); Calcium, Blood 9.4 mg/dL (8.5-10.1); Creatinine, Blood 3.37 mg/dL (0.40-1.00); Globulin, Blood 3.4 g/dL (2.2-4.0); Magnesium, Blood 2.2 mg/dL (1.6-2.4); Phosphorus, Blood 4.9 mg/dL (2.5-4.9); Potassium, Blood 3.8 mmol/L (3.5-5.5); Total Protein, Blood 6.2 g/dL (6.4-8.2)
[2023-05-26 06:16] LABS: BASOPHILS PERCENT MAN 0 % (0-2); EOSINOPHILS PERCENT MAN 0 % (0-6); LYMPHOCYTES % ATYPICAL MANUAL 3 % (0-0); LYMPHOCYTES ABSOLUTE MAN 19.39 K/mm3 (0.84-5.20); LYMPHOCYTES PERCENT MAN 79 % (21-46); MONOCYTES PERCENT MAN 0 % (4-13); NEUTROPHILS ABSOLUTE MAN 4.25 K/mm3 (1.96-9.15); SEG NEUTROPHILS PERCENT MAN 18 % (41-73); TOTAL CELLS COUNTED 100
[2023-05-26 07:33] VITALS: BP 146/58
--- NOTE | 2023-05-26 08:22 | NUR ---
PD RN TO PT RM AT APPROX 0730AM TO DISCONNECT PT FROM PD TREATMENT. PT WAS SITTING UP IN BED VISITING WITH HER FAMILY MEMEBER. PT WAS DISCONNECTED AT APPROX 0740AM. TOTAL IDRAIN WAS 3ML, TOTAL UF WAS -434ML, AVERAGE DWELL WAS 1:02 AND LOST DWELL WAS 0:57. PT WAS LEFT IN AICHA CARE OF HER BEDSIDE RN. NO ALARMS, COMPLICATIONS OR DISCOMFORT REPORTED.
[2023-05-26 09:40] VITALS: BP 184/81
[2023-05-26 10:27] VITALS: BP 143/74
--- NOTE | 2023-05-26 11:50 | NUR ---
PT IS TOLORATING REGULAR DIET. SPOKE DR. CARABALLO, PER MD D/C CLINAMIX. VERIFIED WITH DR. MORRIS. DIETIAN RECOMMENDED LANTUS BE INCREASED TO HOME DOSE OF [address] MORRIS IS OK WITH THIS ORDER.
[2023-05-26 15:18] VITALS: BP 132/57
--- NOTE | 2023-05-26 17:23 | NUR ---
PT DISCHARGED WITH HOME HEALTH. DISCHARGE INSTRUCTIONS DISCUSSED WITH DAUGHTER. NO QUESTIONS OR CONCERNS AT THIS TIME. EMPHASIZED IMPORTANCE OF PT AND FAMILY SAFETY WHEN TRANSFERING PT.
== END 2023-05-26 17:07 | disposition home health service (06) | DRG 91 ==
LOC: ER 17:36 → MEDS 17:37
PROVIDERS: Emergency Medicine; Family Medicine; Internal Medicine; Internal Medicine Nephrology; ADMIT Internal Medicine
PROC: 3E1M39Z Irrigation of Peritoneal Cavity using Dialysate, Percutaneous Approach (ICD-10-PCS; principal; 2023-05-23)
DX: G92.8 Other toxic encephalopathy (principal); N18.6 End stage renal disease; E87.1 Hypo-osmolality and hyponatremia; G93.49 Other encephalopathy; I12.0 Hypertensive chronic kidney disease with stage 5 chronic kidney disease or end stage renal disease; D47.9 Neoplasm of uncertain behavior of lymphoid, hematopoietic and related tissue, unspecified; E44.1 Mild protein-calorie malnutrition; T43.225A Adverse effect of selective serotonin reuptake inhibitors, initial encounter; T42.6X5A Adverse effect of other antiepileptic and sedative-hypnotic drugs, initial encounter; T46.5X5A Adverse effect of other antihypertensive drugs, initial encounter; E03.9 Hypothyroidism, unspecified; E11.22 Type 2 diabetes mellitus with diabetic chronic kidney disease; G89.29 Other chronic pain; M54.9 Dorsalgia, unspecified; D63.1 Anemia in chronic kidney disease; F32.A Depression, unspecified; E87.70 Fluid overload, unspecified; M10.9 Gout, unspecified; E86.9 Volume depletion, unspecified; E88.09 Other disorders of plasma-protein metabolism, not elsewhere classified; Z88.0 Allergy status to penicillin; Z88.5 Allergy status to narcotic agent; Z79.82 Long term (current) use of aspirin; Z79.4 Long term (current) use of insulin; Z79.890 Hormone replacement therapy; Z99.2 Dependence on renal dialysis; Z11.52 Encounter for screening for COVID-19; Z68.31 Body mass index [BMI] 31.0-31.9, adult
CPT/HCPCS: 0241U; 36415; 70450; 71260; 74177; 80053; 81001; 82140; 82330; 82803; 82947; 83605; 83690; 83735; 83880; 84100; 84145; 84443; 84484; 85025; 85027; 85610; 87040; 92610; 93005; 93010; 94660; 94762; 96374-59; 96375; 96375-59; 97110; 97161; 99285-25; A9270; G0378; J0360; J1644; J1815; J2060; J2310; J3010; J7070; Q9967

== ENCOUNTER 2023-08-15 14:04 | Inpatient (IN) | payer OTHER ==
[~2023-08-15] VITALS: Ht 170.2 cm; Wt 102.5 kg
[~2023-08-15 14:04] MED LIST changes: +BACLOFEN10 M4 PO; +CATAPRES0.1 MG PO; +FURO80 PO; +MIDODRINE HCL10 M6 PO; +PANTOPRAZOLE SO40 M2 PO; +RENVELA800 MG PO
[2023-08-15 16:10] LABS: Hematocrit 33.7 % (33.0-51.0); Hemoglobin 11.3 g/dL (11.5-16.0); Mean Corpuscular HGB 33.8 pg (26.0-34.0); Mean Corpuscular HGB Conc 33.5 g/dL (31.5-36.5); Mean Corpuscular Volume 101 fL (80-100); Mean Platelet Volume 11.8 fL (9.1-12.4); Platelet Count 102 K/mm3 (150-400); RDW Coefficient Variation 14.6 % (11.7-14.2); RDW Standard Deviation 54.5 fL (35.1-46.3); Red Blood Cell Count 3.34 M/mm3 (3.80-5.20)
[2023-08-15 16:30] LABS: Albumin, Blood 2.8 g/dL (3.4-5.0); Albumin/Globulin Ratio 0.8 (0.8-1.8); Bilirubin, Total 0.7 mg/dL (0.1-1.0); Bun/Creatinine Ratio 23.2 (12.0-20.0); Calcium, Blood 9.6 mg/dL (8.5-10.1); Creatinine, Blood 4.62 mg/dL (0.40-1.00); Globulin, Blood 3.4 g/dL (2.2-4.0); Potassium, Blood 4.5 mmol/L (3.5-5.5); Total Protein, Blood 6.2 g/dL (6.4-8.2)
[2023-08-15 16:55] LABS: BASOPHILS ABSOLUTE MAN 0.26 K/mm3 (0.00-0.23); BASOPHILS PERCENT MAN 1 % (0-2); EOSINOPHILS PERCENT MAN 0 % (0-6); LYMPHOCYTES % ATYPICAL MANUAL 3 % (0-0); LYMPHOCYTES ABSOLUTE MAN 18.14 K/mm3 (0.84-5.20); LYMPHOCYTES PERCENT MAN 66 % (21-46); MONOCYTES ABSOLUTE MAN 0.52 K/mm3 (0.16-1.47); MONOCYTES PERCENT MAN 2 % (4-13); NEUTROPHILS ABSOLUTE MAN 7.36 K/mm3 (1.96-9.15); SEG NEUTROPHILS PERCENT MAN 28 % (41-73); TOTAL CELLS COUNTED 100
[2023-08-15] MEDS ORDERED: BUME2 PO (19:12)
[2023-08-15] MEDS ORDERED: NEOPOLDEXO LEFTEYE (19:13)
[2023-08-15] MEDS ORDERED: CALCIUM ACETAT667 M2 PO (19:13)
[2023-08-15] MEDS ORDERED: POLYMYXIN B-TMP10 ML LEFTEYE (19:14)
[2023-08-15] MEDS ORDERED: PRED FORTE5 M1 LEFTEYE (19:14)
[2023-08-15] MEDS ORDERED: Acetaminophen 325 MG TABLET PO PRN (20:20)
[2023-08-15] MEDS ORDERED: FLU VACC QS2023-24(6MOS UP)/PF 60 MCG/0.5 ML SYRINGE IM SCH (20:20)
[2023-08-15] MEDS ORDERED: Docusate Sodium 100 MG Cap PO SCH (21:00)
[2023-08-15] MEDS ORDERED: Lactobacil 2-S.Thermo-Bifido 1 1 Cap PO SCH (21:00)
[2023-08-15 22:55] VITALS: BP 124/60
[2023-08-15 22:57] LABS: Automated BF RBC Count 0.002 M/mm3 (0-0)
[2023-08-15 23:37] LABS: Appearance, Body Fluid Cloudy (Clear); Body Fluid WBC Count 16740 /mm3 (0-999); Color, Body Fluid L Yellow (None-Yellow); RBC Count, Body Fluid 2000 /mm3 (0-0)
[2023-08-15 23:42] LABS: Total Cell Count, Body Fluid 100
[2023-08-16] MEDS ORDERED: [UNRECOGNIZED DRUG - OTHER] IV PRN (00:20)
[2023-08-16] MEDS ORDERED: HEPARIN SODIUM PORCINE IV PRN (00:20)
[2023-08-16] MEDS ORDERED: DEX IV PRN (00:20)
[2023-08-16] MEDS ORDERED: CEFAZOLIN SODIUM XX SCH (00:25)
[2023-08-16] MEDS ORDERED: HEPARIN SODIUM PORCINE XX SCH (00:25)
[2023-08-16] MEDS ORDERED: [UNRECOGNIZED DRUG - OTHER] XX SCH (00:25)
[2023-08-16] MEDS ORDERED: CEFTAZIDIME 1000 MG XX SCH (00:25)
[2023-08-16] MEDS ORDERED: DEX XX SCH (00:25)
[2023-08-16] MEDS ORDERED: [UNRECOGNIZED DRUG - OTHER] XX SCH (00:25)
[2023-08-16] MEDS ORDERED: Insulin Glargine-Yfgn 100 Unit/mL 3 ML SYR SC SCH ×2 (01:00→09:00)
[2023-08-16] MEDS ORDERED: FentaNYL Citrate 50 MCG/ML 2 ML Injection IV PRN (01:20)
--- NOTE | 2023-08-16 01:27 | NUR ---
PD RN TO ER 19 TO COLLECT EFFLUENT SAMPLE FROM PT PD CATHETER. PT SITING IN WHEELCHAIR AT BEDSIDE GETTING IV ANTIBIOTICS ADMINISTERED. SAMPLE COLLECTED AND SENT TO LAB FOR CELL COUNT WITH DIFFERENTIAL, GRAM STAIN AND CULTURE. CALLED DR CARABALLO WITH CELL COUNT INFORMATION AND HE PERSCRIBED 1 GRAM ANCEF AND 1 GRAM FORTEZ ALONG WITH 1000 UNITS OF HEPARIN PER LITER. TOOK BAGS TO PHARMACY TO GET THEM INSTILLED WITH MEDICTAIONS. PHARMACIST ALERTED TO PTS ALLERGIES OF PENICILLINS AND FORTEZ BEING WITHIN THIS FMAILY, SHE STATED TAHT THE PATIENTS ALLERGIES WERE ITCHING AND NOT SEVERE. ALERTED PATIENT AND BEDSIDE RN TO THIS POTENTIAL CONTRAINDICATION AND INSTRUCTED PT TO MONITOR FOR S&S OF ALLERGIC REACTION. SET UP CCPD CYCLER PER PROTOCOL AND PREPPED PATIENT ASEPTICALLY FOR CONNECTION TO CCPD TREATMENT. PT CONNECTED AT APPROX 0120AM AND IMMEDIATELY AFTER CONNECTION SHE WAS EXPERIENCING SEVERE PAIN. THE BEDSIDE RN ADMINISTERED A PAIN MEDICATION WHICH SEEMED TO HELPED A LITTLE. WE HAVE EXPERIENCED 4 "LOW DRAIN ALARMS" WITHIN THE FIRST 25 MINUTES OF TREATMENT. RESET TO INITIAL DRAIN EACH TIME ONLY FOR IT TO ALARM AGAIN. TRIED TO BOOST PT AND REPOSITION FOR BETTER FLOW AND IT DOES NOT HELP. CONTACTING TO DETERMINE NEXT STEP.
[2023-08-16] MEDS ORDERED: LevoFLOXacin 500MG/D5W 100ML 100 ML IV ONE (02:10)
--- NOTE | 2023-08-16 02:20 | NUR ---
PT WAS CONNECTE DTO HER DIALYSIS TX AT APPROX 0120AM. SHE IMMEDICATLEY STARTED TO FEEL SEVERE PAIN IN HER ABDOMEN YELLING OOUT AND MOANING IN PAIN. BEDSIDE RN ADMINISTERED PO PAIN MEDS WHCIH HELPED A LITTLE. PT CCPD CYCLER WAS ALARMING "LOW DRAIN FLOW" APPROX EVERY 5-10 MINUTES. AFTER CONTACTING THE DAUGHTER AND DR CARABALLO IT WAS DETERMINED THAT PT WILL HAVE A PD SESSION IN THE AM THAT SIMULATES HER TREATMENTS AT HOME. PT DAUGHTER RODOLFO STATES THAT PT STARTED DOING HER DIALYSIS TX IN THE DAY TIME SITTING UP IN HER RECLINER CHAIR WITH FEET ELEVATED AND THAT THIS HELPS HER TO MAKE IT THROUGH TX SUCESSFULLY WITHOUT ALARMS. PT HAS TRIED OVE RTHE YEARS TO DO DIALYSIS AT NIGHT BUT THAT DOES NOT WORK FOR THEM DUE TO THE CONSTANT ALARMS DURING TREATMENT. PT STARTED TO FEEL NAUSATED AND VOMITTED A LITTLE AT APPROX 0200AM. I DISCONNECTED HER FROM HER DIALYSIS TREATMENT IMMEDICATLY AFTER. ORDERED A SURGICAL CONSULT TO HAVE PERMCATH REVISION WELL IV LEVAQUIN 1 GRAM NOW AND A STANDING ORDER FOR MIRALAX 17G NEEDED FOR CONSTIPATION.
[2023-08-16 03:38] VITALS: BP 131/54
--- NOTE | 2023-08-16 04:33 | NUR ---
SHIFT SUMMARY ABRAN WAS ALERT AND FULLY ORIENTED WHEN SHE WAS ADMITTED AT 2245 FROM THE ED. SHE CAME IN BECAUSE SHE WAS HAVING PAIN IN HER PERITONEAL DIALYSIS PORT AND IT IS SWOLLEN AND RED. SHE RECIEVED CT CONTRAST IN THE ED WHICH WAS OK'D BY DR CARABALLO UNDER THE CONDITION THAT SHE BE DIALIZED TONIGHT. PT WAS GIVEN CT CONTRAST DESPITE HER REASON FOR ADMIT BEING A POSSIBLY NONFUNCTIONING PERMACATH. NUMEROUS CALLS WERE MADE TO HOSPITALIST AND TO DR CARABALLO TRYING TO FIGURE OUT WHAT THIS PATIENTS PLAN OF CARE WAS. EVENTUALLY THE ONCALL DIALYSIS NURSE WAS REACHED AND SHE ATTEMPTED PERITONEAL DIALYSIS UNSUCCESSFULY. PT WENT FROM 0 PAIN TO CRYING AND SHAKING IN PAIN ALMOST IMMEDIATELY, AND THE MACHINE WAS ALARMING FOR LOW OUT DRAIN VOLUME. PLAN IS TO HAVE PT DAUGHTER PRESENT FOR REPEAT ATTEMPTED DIALYSIS IN AM. 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 PT STATES IT IS FROM RUNNING HER FOOT OVER WITH WHEELCHAIR. FROM HER STORY IT IS UNCLEAR WHY THE CAST WAS PLACED, IT SOUNDED LIKE MAYBE SHE HAD AN ABSCESS. 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 DR CARABALLO ORDERED A SURGICAL CONSULT FOR A NEW PERMACATH. AFTER STOPPING THE DIALYSIS PT RETURNED TO NO PAIN AND SLEPT FINE. PT SLEEPING IN BED AT THIS TIME AT A LOW POSITION WITH CALL LIGHT IN REACH.
[2023-08-16 05:01] LABS: Hematocrit 31.2 % (33.0-51.0); Hemoglobin 10.3 g/dL (11.5-16.0); Mean Corpuscular HGB 33.9 pg (26.0-34.0); Mean Corpuscular Volume 103 fL (80-100); Mean Platelet Volume 12.1 fL (9.1-12.4); Platelet Count 87 K/mm3 (150-400); RDW Coefficient Variation 14.6 % (11.7-14.2); RDW Standard Deviation 55.2 fL (35.1-46.3); Red Blood Cell Count 3.04 M/mm3 (3.80-5.20); White Blood Cell Count 22.29 K/mm3 (4.00-11.30)
[2023-08-16] MEDS ORDERED: Pantoprazole Sodium 40 MG Tab PO SCH (06:00)
[2023-08-16] MEDS ORDERED: Levothyroxine Sodium 0.075 MG Tab PO SCH (06:00)
[2023-08-16 06:07] LABS: BAND PERCENT MAN 2 % (0-8); BASOPHILS ABSOLUTE MAN 0.22 K/mm3 (0.00-0.23); BASOPHILS PERCENT MAN 1 % (0-2); EOSINOPHILS PERCENT MAN 0 % (0-6); LYMPHOCYTES ABSOLUTE MAN 14.26 K/mm3 (0.84-5.20); LYMPHOCYTES PERCENT MAN 64 % (21-46); MONOCYTES PERCENT MAN 0 % (4-13); SEG NEUTROPHILS PERCENT MAN 33 % (41-73); TOTAL CELLS COUNTED 100
[2023-08-16 06:22] LABS: Magnesium, Blood 2.1 mg/dL (1.6-2.4)
[2023-08-16 06:23] LABS: Alanine Aminotransfer (ALT/SGP 22 U/L (12-78); Albumin, Blood 2.6 g/dL (3.4-5.0); Albumin/Globulin Ratio 0.8 (0.8-1.8); Alk Phos 107 U/L (50-136); Anion Gap 7 mmol/L (6-16); Aspartate Aminotrans (AST/SGOT 12 U/L (12-37); Bilirubin, Total 0.5 mg/dL (0.1-1.0); Blood Urea Nitrogen 108 mg/dL (8-24); Bun/Creatinine Ratio 24.6 (12.0-20.0); CO2, Blood 26 mmol/L (21-32); Calcium, Blood 9.5 mg/dL (8.5-10.1); Chloride, Blood 102 mmol/L (98-108); Creatinine, Blood 4.39 mg/dL (0.40-1.00); Globulin, Blood 3.3 g/dL (2.2-4.0); Glomerular Filtration Rate 9 (60-); Glucose, Blood 160 mg/dL (70-99); Phosphorus, Blood 4.2 mg/dL (2.5-4.9); Sodium, Blood 135 mmol/L (136-145); Total Protein, Blood 5.9 g/dL (6.4-8.2); Vancomycin, Random 21.3 ug/mL
[2023-08-16] MEDS ORDERED: Insulin Human Lispro 100 Units/ML 3ML Syringe SC SCH (07:30)
[2023-08-16 08:03] VITALS: BP 135/49
[2023-08-16] MEDS ORDERED: Sevelamer Carbonate 800 MG Tab PO SCH (08:30)
[2023-08-16] MEDS ORDERED: Aspirin 81 MG Chew PO SCH (09:00)
[2023-08-16] MEDS ORDERED: Heparin Sodium,Porcine 5,000 UNIT/0.5 ML SDV SC SCH (09:00)
[2023-08-16] MEDS ORDERED: Polyethylene Glycol 3350 17 gm PO SCH (09:00)
[2023-08-16] MEDS ORDERED: Losartan Potassium 25 MG Tab PO SCH (09:00)
[2023-08-16] MEDS ORDERED: AmLODIPine Besylate 5 MG Tab PO SCH (09:00)
[2023-08-16] MEDS ORDERED: Allopurinol 100 MG Tab PO SCH (09:00)
[2023-08-16] MEDS ORDERED: Bumetanide 1 MG Tab PO SCH (09:00)
[2023-08-16] MEDS ORDERED: Citalopram Hydrobromide 20 MG Tab PO SCH (09:00)
[2023-08-16] MEDS ORDERED: CEFAZOLIN SODIUM IV SCH (09:10)
[2023-08-16] MEDS ORDERED: HEPARIN SODIUM IV SCH (09:10)
[2023-08-16] MEDS ORDERED: CEFTAZIDIME 1000 MG IV SCH (09:10)
[2023-08-16] MEDS ORDERED: [UNRECOGNIZED DRUG - OTHER] IV SCH (09:10)
--- NOTE | 2023-08-16 11:39 | NUR ---
PATIENT AWAKE/ ALERT AND IN NO DISCOMFORT WHEN ENTERING ROOM THIS MORNING. AFTER COLLECTING PD BAGS WITH ADMIXTURES FROM PHARMACY, CYCLER SETUP, PRIMED AND PROGRAMMED PER DR CARABALLO'S RX. ONCE PRIME COMPLETED, PT CONNECTED AND DRAIN STARTED. PT SOON COMPLAINED OF ABD PAIN AND DRAIN STOPPED. PT WAS RE-POSITIONED WITH FEET UP AND HEAD UP AND DRAIN WAS RE-STARTED WITH NO PAIN REPORTED. WITH PT CONSIDERED TO BE "DRY", THE ID WAS BYPASSED AND FILL #1 STARTED. A SHORT DWELL WAS ALLOWED AND DRAIN #1 WAS COMMENCED WITH NO PAIN REPORTED. VERY SMALL AMOUNTS OF FIBRIN WAS OBSERVED IN SLIGHTLY CLOUDY EFFLUENT. LOW DRAIN VOLUME ALARM AT 1500ML AND AFTER SEVERAL RESETS, DRAIN WAS BIPASSED AND FILL # 2 STARTED.
--- NOTE | 2023-08-16 12:23 | NUR ---
DRAIN # 2 COMPLETE. NO PAIN REPORTED FILL #3 IN PROCESS WITHOUT PROBLEM. I:20 DWELL WILL BE ALLOWED TO COMPLETE. DR CARABALLO INFORMED OF PROCESS AND RESULTS.
[2023-08-16 16:02] VITALS: BP 133/65
[2023-08-16 20:01] VITALS: BP 111/62
[2023-08-16] MEDS ORDERED: Atorvastatin 10 MG Tab PO SCH (21:00)
[2023-08-17 03:07] VITALS: BP 123/52
--- NOTE | 2023-08-17 03:56 | NUR ---
SHIFT SUMMARY PATIENT IS ALERT AND ORIENTED. PATIENT HAS HAD NO ACUTE EVENTS THIS SHIFT. VITAL SIGNS REVIEWED. PATIENT HAS BEEN SLEEPING THROUGHOUT THE SHIFT. PATIENT HAS HAD NO COMPLAINTS OF PAIN, NAUSEA, SOB OR VOMITTING THIS SHIFT. PATIENTS FAMILY HAS BEEN VISITING AT THE BEGINNING OF SHIFT AND WAS EXPLAINED THE DIALYSIS CATHETER ISSUE. BED IN LOCKED AND LOWEST POSITION. CALL LIGHT IN PLACE. WILL MONITOR UNTIL SHIFT CHANGE.
[2023-08-17 04:49] LABS: Hematocrit 29.5 % (33.0-51.0); Hemoglobin 9.7 g/dL (11.5-16.0)
[2023-08-17 05:59] LABS: Albumin, Blood 2.3 g/dL (3.4-5.0); Anion Gap 6 mmol/L (6-16); Blood Urea Nitrogen 103 mg/dL (8-24); Bun/Creatinine Ratio 20.9 (12.0-20.0); CO2, Blood 27 mmol/L (21-32); Calcium, Blood 8.9 mg/dL (8.5-10.1); Chloride, Blood 100 mmol/L (98-108); Creatinine, Blood 4.93 mg/dL (0.40-1.00); Glomerular Filtration Rate 8 (60-); Glucose, Blood 132 mg/dL (70-99); Magnesium, Blood 2.1 mg/dL (1.6-2.4); Phosphorus, Blood 4.8 mg/dL (2.5-4.9); Potassium, Blood 4.1 mmol/L (3.5-5.5); Sodium, Blood 133 mmol/L (136-145); Vancomycin, Random 16.6 ug/mL
[2023-08-17] MEDS ORDERED: [UNRECOGNIZED DRUG - OTHER] IV SCH (06:30)
[2023-08-17] MEDS ORDERED: HEPARIN IV SCH (06:30)
[2023-08-17] MEDS ORDERED: CEFAZOLIN 2000 MG IV SCH (06:30)
[2023-08-17] MEDS ORDERED: CEFTAZIDIME 2000 MG IV SCH (06:30)
[2023-08-17 07:19] VITALS: BP 132/63
--- NOTE | 2023-08-17 10:35 | NUR ---
DIALYSIS - PD PT CONNECTED TO PD TX WITHOUT PROBLEMS NO C/O PAIN OR DISCOMFORT. LOW FLOW X [address] TAKEN BEORE PT STARTED AND TAKEN TO LAB
[2023-08-17 10:38] LABS: Automated BF RBC Count 0.003 M/mm3 (0-0)
[2023-08-17 10:53] LABS: Body Fluid WBC Count 4420 /mm3 (0-999); RBC Count, Body Fluid 3000 /mm3 (0-0)
[2023-08-17 11:44] LABS: Color, Body Fluid L Yellow (None-Yellow); Total Cell Count, Body Fluid 100
[2023-08-17 11:45] LABS: Appearance, Body Fluid Hazy (Clear)
[2023-08-17] MEDS ORDERED: Darbepoetin Alfa In Albumn Sol 40 MCG/0.4 ML SC SCH (16:00)
--- NOTE | 2023-08-17 18:25 | NUR ---
DIALYSIS-PD PT DENIES PAIN DURING TX. WHICH SHE HAD BEEN HAVING AT HOME. ABLE TO LAY FLAT DURING TX.
--- NOTE | 2023-08-17 19:11 | NUR ---
PATIENT IS ALERT AND ORIENTED AND COOPERATIVE WITH CARE. THE PATIENT WAS IN THE DIALYSIS ROOM FOR CLOSE TO 8HRS TODAY. NO COMPLAINTS. ON RA. NO REDNESS NOTED ON PD INSERTION SITE. WILL CONTINUE TO MONITOR
[2023-08-17 19:38] VITALS: BP 121/50
[2023-08-18] MEDS ORDERED: [UNRECOGNIZED DRUG - OTHER] IV SCH (00:10)
[2023-08-18] MEDS ORDERED: CEFAZOLIN SODIUM IV SCH (00:10)
[2023-08-18] MEDS ORDERED: CEFTAZIDIME 2000 MG IV SCH (00:10)
[2023-08-18 03:31] VITALS: BP 120/52
--- NOTE | 2023-08-18 04:45 | NUR ---
SHIFT SUMMARY PATIENT IS ALERT AND ORIENTED. PATIENT HAS HAD NO ACUTE EVENTS THIS SHIFT. VITAL SIGNS REVIEWED. PATIENT HAS HAD NO COMPLAINTS OF PAIN, NAUSEA, SOB OR VOMITTING THIS SHIFT. PATIENT HAS BEEN RESTING COMFORTABLY MOST OF SHIFT. PD PORT HAS DECREASED REDNESS PRIOR SHIFT. BED IN LOCKED AND LOWEST POSITION. WILL MONITOR UNTIL SHIFT CHANGE.
[2023-08-18 05:17] LABS: Hematocrit 29.7 % (33.0-51.0); Hemoglobin 9.8 g/dL (11.5-16.0)
[2023-08-18 05:34] LABS: Albumin, Blood 2.4 g/dL (3.4-5.0); Anion Gap 4 mmol/L (6-16); Blood Urea Nitrogen 93 mg/dL (8-24); CO2, Blood 30 mmol/L (21-32); Calcium, Blood 9.1 mg/dL (8.5-10.1); Chloride, Blood 102 mmol/L (98-108); Creatinine, Blood 5.16 mg/dL (0.40-1.00); Glomerular Filtration Rate 8 (60-); Glucose, Blood 81 mg/dL (70-99); Magnesium, Blood 2.2 mg/dL (1.6-2.4); Phosphorus, Blood 4.3 mg/dL (2.5-4.9); Sodium, Blood 136 mmol/L (136-145); Vancomycin, Random 15.6 ug/mL
[2023-08-18 07:52] VITALS: BP 131/48
--- NOTE | 2023-08-18 08:21 | NUR ---
DIALYSIS NOTE PT SITTING UP IN BED, DAUGHTER AT BEDSIDE. CCPD TX SET UP AND CONNECTED PRESCRIBED PER P&P. DRSG CHANGE COMPLETED, EXIT SITE IN GOOD CONDITION. HANDOFF REPORT GIVEN TO ALICE HODGSON RN.
--- NOTE | 2023-08-18 09:00 | NUR ---
pt laying in bed dialysis just hooked her up for a run, a/ox4, pleasant and cooperative with care, follows commands well, denies pain, states she's ok, cbg was a bit low this am, but wasn't symptomatic, breakfast and juice given, she reports she can tell when she's low, lungs are clear dim in bases, resp even and unlabored, no cough noted, hrr, trace edema noted to right ankle and foot, left foot is in a cast, states she can feel her toes, has P.D. cath to left side of abd, surrounding tissue is pink, piv to rac, site is clear and patent, btx4, abd flat soft, voids without diff, skin has pink area to abd otherwise c/w/d, izabela jimenez, call light in reach.
--- NOTE | 2023-08-18 15:30 | NUR ---
DIALYSIS NOTE DDPD TX COMPLETED PRESCRIBED. PT REPORTS MULTIPLE ALARS FOR LOW UF, SLOW DRAIN AND LOW FLOW. PT D/C FROM TX PER P&P, TRANSFER SET CLOSED, CAPPED AND SECURE. REPORT GIVEN TO ALICE HODGSON RN.
[2023-08-18 16:14] VITALS: BP 147/73
--- NOTE | 2023-08-18 18:31 | NUR ---
pt sat up in the chair today, no acute changes this shift, no needs, visitors in room, in good spirits. call light in reachl.
[2023-08-18 20:23] VITALS: BP 136/52
[2023-08-19] VITALS (17 sets, daily range): BP systolic 113–160; BP diastolic 42–71
[2023-08-19 05:00] LABS: Hematocrit 30.1 % (33.0-51.0)
[2023-08-19 05:46] LABS: Magnesium, Blood 2.1 mg/dL (1.6-2.4)
--- NOTE | 2023-08-19 05:47 | NUR ---
SHIFT SUMMARY PATIENT IS ALERT AND ORIENTED. PATIENT HAS HAD NO ACUTE EVENTS THIS SHIFT. VITAL SIGNS REVIEWED. PATIENT HAS NOT COMPLAINED OF PAIN, NAUSEA, SOB OR VOMITTING THIS SHIFT. PATIENT HAS BEEN NPO SINCE MIDNIGHT FOR A DIALYSIS CATHETER PLACEMENT LATER TODAY. PATIENT HAS BEEN PLEASENT AND COOPERATIVE WITH CARE THIS SHIFT. PATIENT HAS BEEN WEARING HOME CPAP MOST OF NIGHT. BED IN LOCKED AND LOWEST POSITION. CALL LIGHT IN PLACE.
[2023-08-19 05:52] LABS: Albumin, Blood 2.2 g/dL (3.4-5.0); Anion Gap 5 mmol/L (6-16); Blood Urea Nitrogen 81 mg/dL (8-24); Bun/Creatinine Ratio 16.7 (12.0-20.0); CO2, Blood 28 mmol/L (21-32); Chloride, Blood 103 mmol/L (98-108); Creatinine, Blood 4.85 mg/dL (0.40-1.00); Glomerular Filtration Rate 8 (60-); Glucose, Blood 99 mg/dL (70-99); Phosphorus, Blood 3.8 mg/dL (2.5-4.9); Sodium, Blood 136 mmol/L (136-145); Vancomycin, Random 13.1 ug/mL
[2023-08-19] MEDS ORDERED: NS 1,000 ML IV SCH (08:55)
[2023-08-19] MEDS ORDERED: Insulin Glargine-Yfgn 100 Unit/mL 3 ML SYR SC SCH (09:00)
[2023-08-19] MEDS ORDERED: CeFAZolin Sodium 1,000 MG in NS 50 ML IV SCH (09:35)
[2023-08-19] MEDS ORDERED: propofoL 20 ML IV ONE (09:43)
[2023-08-19] MEDS ORDERED: Bupivacaine 0.5% HCl 5 MG/ML 30MLVIAL ONE (09:45)
[2023-08-19] MEDS ORDERED: Heparin Sodium 5000 Units/ML 1ML MDV ONE ×3 (09:45→10:10)
[2023-08-19] MEDS ORDERED: FentaNYL Citrate 50 MCG/ML 2 ML Injection ONE (10:00)
--- NOTE | 2023-08-19 18:20 | NUR ---
SHIFT SUMMARY PT HAD PERMACATH PLACED THIS AM IN DAY SURGERY BY DR. WEISS. DIALYSIS DIRECTLY AFTER THIS. PT PERMACATH PORT IS LEAKING SOME BLOOD. THIS HAS INCREASED SLIGHTLY SINCE DIALYSIS TODAY. DRESSING REENFORCED AND SAND BAG IN USE WHEN LYING DOWN. PT CURRENLY UP IN CHAIR, EATING DINNER. CALL LIGHT IN REACH. PT DENIES OTHER NEEDS AT THIS TIME. CONSULT FAXED TO DR. DE OFFICE TO FIX PD TUBING.
[2023-08-20] VITALS (12 sets, daily range): BP systolic 117–156; BP diastolic 45–75
--- NOTE | 2023-08-20 04:46 | NUR ---
SHIFT SUMMARY PATIENT IS ALERT AND ORIENTED. PATIENT HAS HAD NO ACUTE EVENTS THIS SHIFT. PATIENT HAD DIALYSIS CATHETER PLACED DURING DAY SHIFT AND HAS HAD MINOR BLEEDING THAT HAS NOT CHANGED SINCE START OF SHIFT. SANDBAG IN PLACE ONLY PT LAYING DOWN. PATIENT HAS COMPLAINED OF PAIN THIS SHIFT AND MEDICATED PER EMAR. PATIENT HAS HAD NO COMPLAINTS OF SOB, NAUSEA OR VOMITTING THIS SHIFT. PATIENT HAS BEEN COMPLIANT WITH HOME CPAP THIS SHIFT. BED IN LOCKED AND LOWEST POSITION. CALL LIGHT IN PLACE. WILL MONITOR UNTIL SHIFT CHANGE.
[2023-08-20 04:49] LABS: Hematocrit 32.4 % (33.0-51.0); Hemoglobin 10.4 g/dL (11.5-16.0)
[2023-08-20 05:36] LABS: Albumin, Blood 2.3 g/dL (3.4-5.0); Anion Gap 2 mmol/L (6-16); Blood Urea Nitrogen 55 mg/dL (8-24); CO2, Blood 32 mmol/L (21-32); Calcium, Blood 9.1 mg/dL (8.5-10.1); Chloride, Blood 106 mmol/L (98-108); Creatinine, Blood 3.92 mg/dL (0.40-1.00); Glomerular Filtration Rate 11 (60-); Glucose, Blood 133 mg/dL (70-99); Magnesium, Blood 2.1 mg/dL (1.6-2.4); Phosphorus, Blood 3.4 mg/dL (2.5-4.9); Potassium, Blood 3.8 mmol/L (3.5-5.5); Sodium, Blood 140 mmol/L (136-145)
[2023-08-20] MEDS ORDERED: Anticoagulant Sod Citrate Soln 3 ML SYR INJ PRN (09:05)
[2023-08-20] MEDS ORDERED: CeFAZolin Sodium 1,000 MG in NS 50 ML IV SCH (16:00)
--- NOTE | 2023-08-20 17:41 | NUR ---
DAYSHIFT SUMMARY Patient Alert & oriented x4. Diaylsis this morning, BP & Bumex medication held. Vitals stable. IV ABX administred, stated plan is to consult with IR. Ruperto WNL, SSI administred. Will continue plan of care.
[2023-08-21 03:18] VITALS: BP 140/51
--- NOTE | 2023-08-21 04:16 | NUR ---
END OF SHIFT SUMMARY PT A&O x4, VSS, AFEBRILE, PT ON RA. RESP RATE EVEN AND UNLABORED. PT PLEASANT AND COOPERATIVE WITH CARE PROVIDED. NO C/O PAIN OR DISCOMFORT. PT DENIED CHEST PAIN, NO SOB. PT 1P SBA TO BSC. A HARD CAST IS PRESENT TO PT'S LEFT LEG. PT ABLE TO WIGGLE TOES TO L FOOT. PT ABLE TO MAKE NEEDS KNOWN, CALL LIGHT WITHIN REACH, [facility].
[2023-08-21 05:00] LABS: Hematocrit 31.2 % (33.0-51.0); Hemoglobin 10.1 g/dL (11.5-16.0)
[2023-08-21 05:21] LABS: Albumin, Blood 2.4 g/dL (3.4-5.0); Anion Gap 1 mmol/L (6-16); Blood Urea Nitrogen 39 mg/dL (8-24); Bun/Creatinine Ratio 10.2 (12.0-20.0); CO2, Blood 33 mmol/L (21-32); Calcium, Blood 9.1 mg/dL (8.5-10.1); Chloride, Blood 107 mmol/L (98-108); Creatinine, Blood 3.83 mg/dL (0.40-1.00); Glomerular Filtration Rate 11 (60-); Glucose, Blood 106 mg/dL (70-99); Magnesium, Blood 2.1 mg/dL (1.6-2.4); Potassium, Blood 3.6 mmol/L (3.5-5.5); Sodium, Blood 141 mmol/L (136-145)
[2023-08-21 07:34] VITALS: BP 154/64
--- NOTE | 2023-08-21 09:00 | NUR ---
pt laying in bed watching tv, a/ox3, pleasant and coopertive with care, follows commands well, denies pain, states she feels pretty good, lungs are clear t/o, resp even and unlabord, no cough noted, on r/a, hrr, trace edema noted to r ankle, ppp+1 to right foot, left foot in cast, states she can feel toes, piv to lac, site is clear and patent, btx4, abd flat soft some tenderness around P.D. cath, is less pink than two days ago, voids via bsc, also has pullups on, skin c/w/d, pink on abd as noted above, izabela jimenez, call light in reach.
[2023-08-21] MEDS ORDERED: NS 3,000 ML IV ONE (12:35)
[2023-08-21] MEDS ORDERED: Midazolam HCl 1MG / ML 2ML Vial ONE (12:57)
[2023-08-21] MEDS ORDERED: FentaNYL Citrate 50 MCG/ML 2 ML Injection ONE (12:57)
--- NOTE | 2023-08-21 18:15 | NUR ---
pt has been discharged to home, no new meds to call in, she is aware of dialysis appt, and follow up appts. piv removed intact, left with all her belongings via wheelchair with power electronics engineer in attendence.
== END 2023-08-21 18:36 | disposition home or self-care (01) | DRG 919 ==
LOC: ER 14:04 → ERHOLD 20:15 → MEDS 20:15
PROVIDERS: Internal Medicine Nephrology; Physician Assistant; ADMIT Student in an Organized Health Care Education/Training Program
PROC: 3E03329 Introduction of Other Anti-infective into Peripheral Vein, Percutaneous Approach (ICD-10-PCS; principal; 2023-08-15)
PROC: 0JH63XZ Insertion of Tunneled Vascular Access Device into Chest Subcutaneous Tissue and Fascia, Percutaneous Approach (ICD-10-PCS; 2023-08-19)
PROC: 02HV33Z Insertion of Infusion Device into Superior Vena Cava, Percutaneous Approach (ICD-10-PCS; 2023-08-19)
PROC: B548ZZA Ultrasonography of Superior Vena Cava, Guidance (ICD-10-PCS; 2023-08-19)
PROC: 5A1D70Z Performance of Urinary Filtration, Intermittent, Less than 6 Hours Per Day (ICD-10-PCS; 2023-08-19)
DX: T85.71XA Infection and inflammatory reaction due to peritoneal dialysis catheter, initial encounter (principal); A41.01 Sepsis due to Methicillin susceptible Staphylococcus aureus; N18.6 End stage renal disease; K65.9 Peritonitis, unspecified; N25.81 Secondary hyperparathyroidism of renal origin; E87.1 Hypo-osmolality and hyponatremia; I12.0 Hypertensive chronic kidney disease with stage 5 chronic kidney disease or end stage renal disease; C91.90 Lymphoid leukemia, unspecified not having achieved remission; T85.611A Breakdown (mechanical) of intraperitoneal dialysis catheter, initial encounter; D63.1 Anemia in chronic kidney disease; E11.22 Type 2 diabetes mellitus with diabetic chronic kidney disease; E03.9 Hypothyroidism, unspecified; Z99.2 Dependence on renal dialysis; Z90.49 Acquired absence of other specified parts of digestive tract; Z98.49 Cataract extraction status, unspecified eye; Z90.89 Acquired absence of other organs; Z98.890 Other specified postprocedural states; Z88.0 Allergy status to penicillin; Z88.5 Allergy status to narcotic agent; Z88.6 Allergy status to analgesic agent; Z79.4 Long term (current) use of insulin; Z79.82 Long term (current) use of aspirin; Z79.890 Hormone replacement therapy; Z79.899 Other long term (current) drug therapy; Y84.1 Kidney dialysis as the cause of abnormal reaction of the patient, or of later complication, without mention of misadventure at the time of the procedure
CPT/HCPCS: 36415; 74177; 77001; 80053; 80069; 80202; 82607; 82746; 82947; 83605; 83735; 84100; 84443; 85014; 85018; 85025; 87040; 87070; 87077; 87147; 87186; 87205; 89051; 94660; 94762; 96365-59; 99152; 99285-25; A9270; C1750; C1769; J0690; J0713; J0881; J1644; J1815; J1956; J2250; J2704; J3010; J3370; J7030; J7050; Q9967

== ENCOUNTER 2024-01-29 11:21 | Emergency (ER) | payer OTHER ==
[~2024-01-29] VITALS: Ht 167.6 cm; Wt 88.5 kg
[~2024-01-29 11:21] MED LIST changes: +ACET500 PO; +ARANESP SC; +CALCIUM ACETAT667 M2 PO; +CEFAZOLIN2 GM/50 M3 IV; +Calcium Acetat667 MG PO; +Cyclobenzaprine5 MG PO; +INSULANPEN; +LOSA25 PO; +NEOPOLDEXO LEFTEYE; +OMEGA-3 + VITA1 EAC2 PO; +OMEGA-3 1,0501 EACH PO; +PANT40 PO; +POLYMYXIN B-TMP10 ML LEFTEYE; +PRED FORTE5 M1 LEFTEYE; +VITAMIN D31000 UNI1 PO; +Voltaren100 GM TOP
[2024-01-29] MEDS ORDERED: Alteplase Recombinant 2 MG / Vial IV PRN (12:05)
--- NOTE | 2024-01-29 12:50 | NUR ---
PT TO ER FROM OUTPATIENT DIALYSIS CLINIC DUE TO NON FUNCTIONAL PERMCATH. UPON INITIAL ASSESSMENT PERMCATH OCCLUDED ON BOTH ARTERIAL AND VENOUS LUMENS. ADMINISTERED CATHFLOW/ACTIVASE INTO EACH LUMEN IN ATTEMPT TO REGAIN PATENTCY. CATHFLOW IS ON A SHORT SUPPLY DUE TO [place]ATION WIDE SHORTAGE. CLINIC IS OUT OF CATHFLOW. ALLOWING SOLUTION TO DWELL FOR POSSIBLE IN HOPES TO REGAIN UNRESTRICTED BLOOD FLOW DURING DIALYSIS. PT HAS CHAIR TIME SCHEDULED FOR TOMORROW AT THE OUTPATIENT CLINIC.
[2024-01-29 12:56] VITALS: BP 123/49
== END 2024-01-29 13:08 | disposition home or self-care (01) ==
LOC: ER 11:21
DX: T82.41XA Breakdown (mechanical) of vascular dialysis catheter, initial encounter (principal); I10 Essential (primary) hypertension; E11.9 Type 2 diabetes mellitus without complications; Z86.73 Personal history of transient ischemic attack (TIA), and cerebral infarction without residual deficits; Z88.0 Allergy status to penicillin; Z88.5 Allergy status to narcotic agent; Z88.8 Allergy status to other drugs, medicaments and biological substances; Z79.82 Long term (current) use of aspirin; Z79.899 Other long term (current) drug therapy
CPT/HCPCS: 36593; 99283-25; J2997

== ENCOUNTER 2024-03-24 09:02 | Day surgery (SDC) | payer OTHER ==
[~2024-03-24 09:02] MED LIST changes: +BIOTIN; +Percocet 5-3251 EACH PO; +SEVEC800 PO
[2024-03-24 09:19] VITALS: BP 160/58
[2024-03-24] MEDS ORDERED: NS 250 ML IV ONE (09:38)
[2024-03-24] MEDS ORDERED: Heparin Sodium 1000 Units/ML 10ML MDV ONE (09:38)
[2024-03-24] MEDS ORDERED: INSULANPEN SC (09:49)
[2024-03-24] MEDS ORDERED: Midazolam HCl 1MG / ML 2ML Vial ONE (10:06)
[2024-03-24] MEDS ORDERED: FentaNYL Citrate 50 MCG/ML 2 ML Injection ONE (10:07)
[2024-03-24] MEDS ORDERED: NS 1,000 ML IV ONE (10:07)
--- NOTE | 2024-03-24 11:15 | NUR ---
PATIENT ARRIVED BACK TO RECOVERY ROOM SITTING UPRIGHT IN BED. R CHEST PERMACATH IN PLACE. SITE C/D/I SOFT/NONTENDER, NO EVIDENCE OF BLEEDING. VSS ON RA. PATIENT CONVERSING APPROPRIATELY
[2024-03-24 11:18] VITALS: BP 131/42
[2024-03-24 11:30] VITALS: BP 132/53
[2024-03-24 11:45] VITALS: BP 122/104
--- NOTE | 2024-03-24 12:14 | NUR ---
PT AND DAUGHTER GIVEN DC INSTRUCTIONS AND VERBALIZED UNDERSTANDING. IV OUT. PT CHANGED. SITE SOFT AND NON-TENDER PER PT. NO BLEEDING NOTED. PT ASSISTED TO WC AND TAKEN TO LBY AND IN TO CAR. DAUGHTER TO TAKE PT TO DIALYSIS APPOINTMENT.
== END 2024-03-24 12:26 | disposition home or self-care (01) ==
LOC: MHTC 09:02
PROC: 0J2SXYZ Change Other Device in Head and Neck Subcutaneous Tissue and Fascia, External Approach (ICD-10-PCS; principal; 2024-03-24)
DX: T82.41XA Breakdown (mechanical) of vascular dialysis catheter, initial encounter (principal); Y71.8 Miscellaneous cardiovascular devices associated with adverse incidents, not elsewhere classified; I12.0 Hypertensive chronic kidney disease with stage 5 chronic kidney disease or end stage renal disease; E11.22 Type 2 diabetes mellitus with diabetic chronic kidney disease; N18.6 End stage renal disease; E11.42 Type 2 diabetes mellitus with diabetic polyneuropathy; E03.9 Hypothyroidism, unspecified; G47.33 Obstructive sleep apnea (adult) (pediatric); Z88.0 Allergy status to penicillin; Z88.5 Allergy status to narcotic agent; Z79.82 Long term (current) use of aspirin; Z79.890 Hormone replacement therapy; Z79.899 Other long term (current) drug therapy
CPT/HCPCS: 99152; 99153; C1725; C1750; C1769; C1894; J1644; J2250; J3010; J7030; J7050; Q9967

== ENCOUNTER 2025-02-21 07:08 | Day surgery (SDC) | payer OTHER ==
[~2025-02-21] VITALS: Ht 170.2 cm; Wt 88.0 kg
[~2025-02-21 07:08] MED LIST changes: +INSULANPEN SC
[2025-02-21 07:40] VITALS: BP 124/42
[2025-02-21] MEDS ORDERED: NS 500 ML IV ONE (07:57)
[2025-02-21] MEDS ORDERED: Heparin Sodium 1000 Units/ML 10ML MDV ONE (08:20)
[2025-02-21] MEDS ORDERED: Protamine Sulfate 50 MG Amp ONE (08:59)
[2025-02-21] MEDS ORDERED: Ketorolac Tromethamine 30mg Vial ONE (09:08)
[2025-02-21 09:21] VITALS: BP 145/56
--- NOTE | 2025-02-21 09:28 | NUR ---
FOLLOWED PT BACK TO RECOVERY ROOM. PT RESTING AT THIS TIME.
[2025-02-21 09:30] VITALS: BP 137/57
[2025-02-21 09:45] VITALS: BP 127/50
[2025-02-21 10:00] VITALS: BP 129/65
--- NOTE | 2025-02-21 10:39 | NUR ---
PT DAUGHTER HERE, PT UP AND DRESSED. OFFERS NO C/O'S. DISCHARGE INSTRUCTIONS REVIEWED WITH PT AND DAUGHTER, BOTH VERBALIZE UNDERSTANDING. SALINE LOCK REMOVED WITH CATHETER INTACT. DRESSING APPLIED. PT TO PERSONAL W/C AND DISCHARGED IN CARE OF DAUGHTER.
== END 2025-02-21 10:35 | disposition home or self-care (01) ==
LOC: MHTC 07:08
DX: T82.858A Stenosis of other vascular prosthetic devices, implants and grafts, initial encounter (principal); I12.0 Hypertensive chronic kidney disease with stage 5 chronic kidney disease or end stage renal disease; E11.22 Type 2 diabetes mellitus with diabetic chronic kidney disease; N18.6 End stage renal disease; E03.9 Hypothyroidism, unspecified; E11.42 Type 2 diabetes mellitus with diabetic polyneuropathy; C91.10 Chronic lymphocytic leukemia of B-cell type not having achieved remission; E78.00 Pure hypercholesterolemia, unspecified; G47.33 Obstructive sleep apnea (adult) (pediatric); Z99.2 Dependence on renal dialysis; Z79.4 Long term (current) use of insulin; Z79.890 Hormone replacement therapy; Z79.899 Other long term (current) drug therapy; Z88.5 Allergy status to narcotic agent; Z88.0 Allergy status to penicillin; Z90.49 Acquired absence of other specified parts of digestive tract
CPT/HCPCS: 76937; 93005; 93010; C1725; C1769; C1887; C1894; J1644; J1885; J2720; J7040; Q9967

== ENCOUNTER 2025-05-02 07:52 | Emergency (ER) | payer OTHER ==
[~2025-05-02] VITALS: Ht 167.6 cm; Wt 81.2 kg
[2025-05-02] MEDS ORDERED: Preservision S1 EACH PO (08:13)
[2025-05-02] MEDS ORDERED: VELPHORO PO (08:13)
[2025-05-02] MEDS ORDERED: BRUKINSA80 MG (08:14)
[2025-05-02] MEDS ORDERED: MERIBIN5 MG PO (08:14)
[2025-05-02] MEDS ORDERED: FISH OIL 1,0001 EA10 PO (08:14)
[2025-05-02 08:45] LABS: BASOPHILS ABSOLUTE AUTO 0.02 K/mm3 (0.00-0.23); BASOPHILS PERCENT AUTO 0 % (0-2); EOSINOPHILS ABSOLUTE AUTO 0.03 K/mm3 (0.00-0.68); EOSINOPHILS PERCENT AUTO 0 % (0-6); Hematocrit 26.3 % (33.0-51.0); Hemoglobin 9.0 g/dL (11.5-16.0); IMMATURE GRAN ABSOLUTE AUTO 0.01 K/mm3 (0.00-0.10); IMMATURE GRAN PERCENT AUTO 0 % (0-1); LYMPHOCYTES ABSOLUTE AUTO 6.26 K/mm3 (0.84-5.20); LYMPHOCYTES PERCENT AUTO 74 % (21-46); MONOCYTES ABSOLUTE AUTO 0.08 K/mm3 (0.16-1.47); MONOCYTES PERCENT AUTO 1 % (4-13); Mean Corpuscular HGB Conc 34.2 g/dL (31.5-36.5); Mean Corpuscular Volume 110 fL (80-100); NEUTROPHILS ABSOLUTE AUTO 2.07 K/mm3 (1.96-9.15); NEUTROPHILS PERCENT AUTO 25 % (41-73); NRBC ABSOLUTE 0.00 K/mm3 (0.00-0.02); NRBC Auto 0.0 /100 WBC (0.0-0.2); Platelet Count 100 K/mm3 (150-400); RDW Coefficient Variation 13.2 % (11.7-14.2); RDW Standard Deviation 53.4 fL (35.1-46.3)
[2025-05-02 09:09] LABS: Alanine Aminotransfer (ALT/SGP 13.0 U/L (12-78); Albumin, Blood 3.3 g/dL (3.4-5.0); Albumin/Globulin Ratio 1.2 (0.8-1.8); Anion Gap 11.0 mmol/L (3-11); Aspartate Aminotrans (AST/SGOT 9.0 U/L (12-37); Bilirubin, Total 0.6 mg/dL (0.1-1.0); Blood Urea Nitrogen 100.0 mg/dL (8-24); CO2, Blood 30.0 mmol/L (21-32); Calcium, Blood 9.9 mg/dL (8.5-10.1); Chloride, Blood 100.0 mmol/L (98-108); Creatinine, Blood 6.61 mg/dL (0.40-1.00); Globulin, Blood 2.8 g/dL (2.2-4.0); Glucose, Blood 150.0 mg/dL (70-99); Potassium, Blood 4.8 mmol/L (3.5-5.5); Sodium, Blood 136.0 mmol/L (136-145); Total Protein, Blood 6.1 g/dL (6.4-8.2)
[2025-05-02 11:30] VITALS: BP 154/47
[2025-05-03] MEDS ORDERED: ACET500 PO (10:20)
[2025-05-03] MEDS ORDERED: MIDODRINE HCL10 M1 PO (10:22)
[2025-05-03] MEDS ORDERED: OMEGA-3 FISH O1 EA21 PO (10:26)
[2025-05-03] MEDS ORDERED: Zocor10 MG PO (10:27)
== END 2025-05-02 12:02 | disposition home or self-care (01) ==
LOC: ER 07:52
PROVIDERS: Emergency Medicine
DX: T82.868A Thrombosis due to vascular prosthetic devices, implants and grafts, initial encounter (principal); Y71.8 Miscellaneous cardiovascular devices associated with adverse incidents, not elsewhere classified; I12.0 Hypertensive chronic kidney disease with stage 5 chronic kidney disease or end stage renal disease; E11.22 Type 2 diabetes mellitus with diabetic chronic kidney disease; N18.6 End stage renal disease; D64.9 Anemia, unspecified; D69.6 Thrombocytopenia, unspecified; E03.9 Hypothyroidism, unspecified; E78.5 Hyperlipidemia, unspecified; Z88.0 Allergy status to penicillin; Z88.1 Allergy status to other antibiotic agents; Z88.5 Allergy status to narcotic agent; Z79.4 Long term (current) use of insulin; Z79.899 Other long term (current) drug therapy; Z79.890 Hormone replacement therapy; Z99.2 Dependence on renal dialysis; Z66 Do not resuscitate
CPT/HCPCS: 71045; 80053; 85025; 93005; 93010; 99284-25

== ENCOUNTER 2025-05-03 10:06 | Day surgery (SDC) | payer OTHER ==
[~2025-05-03] VITALS: Wt 81.2 kg
[~2025-05-03 10:06] MED LIST changes: +BRUKINSA80 MG; +FISH OIL 1,0001 EA10 PO; +MERIBIN5 MG PO; +Preservision S1 EACH PO; +VELPHORO PO
[2025-05-03] MEDS ORDERED: ACET500 PO (10:20)
[2025-05-03] MEDS ORDERED: MIDODRINE HCL10 M1 PO (10:22)
[2025-05-03] MEDS ORDERED: OMEGA-3 FISH O1 EA21 PO (10:26)
[2025-05-03] MEDS ORDERED: Zocor10 MG PO (10:27)
[2025-05-03 10:33] VITALS: BP 161/64
[2025-05-03] MEDS ORDERED: NS 1,000 ML IV ONE ×2 (12:00→12:06)
[2025-05-03] MEDS ORDERED: Heparin Sodium 1000 Units/ML 10ML MDV ONE (12:00)
[2025-05-03] MEDS ORDERED: NS 500 ML IV ONE (12:01)
[2025-05-03 13:45] VITALS: BP 158/60
--- NOTE | 2025-05-03 14:07 | NUR ---
PT AND DAUGHTER VERBALIZED UNDERSTANDING OF WRITTEN AND VERBAL D/C INST. IV REMOVED. PT TAKEN OUT OF THE HRT CENTER VIA W/C.
== END 2025-05-03 14:24 | disposition home or self-care (01) ==
LOC: MHTC 10:06
DX: T82.858A Stenosis of other vascular prosthetic devices, implants and grafts, initial encounter (principal); I12.0 Hypertensive chronic kidney disease with stage 5 chronic kidney disease or end stage renal disease; E11.22 Type 2 diabetes mellitus with diabetic chronic kidney disease; N18.6 End stage renal disease; C91.10 Chronic lymphocytic leukemia of B-cell type not having achieved remission; E11.42 Type 2 diabetes mellitus with diabetic polyneuropathy; E78.00 Pure hypercholesterolemia, unspecified; E03.9 Hypothyroidism, unspecified; G47.33 Obstructive sleep apnea (adult) (pediatric); E66.9 Obesity, unspecified; Z68.28 Body mass index [BMI] 28.0-28.9, adult; Z79.4 Long term (current) use of insulin; Z79.890 Hormone replacement therapy; Z79.899 Other long term (current) drug therapy; Z88.0 Allergy status to penicillin; Z88.5 Allergy status to narcotic agent; Z88.8 Allergy status to other drugs, medicaments and biological substances; Z90.49 Acquired absence of other specified parts of digestive tract; Z80.0 Family history of malignant neoplasm of digestive organs
CPT/HCPCS: 36902; 76937; C1725; C1769; C1894; C2623; J1644; J7030; J7040; Q9967